=== PATIENT | male | born 1950 | race Caucasian/White ===

== ENCOUNTER 2017-11-05 22:53 | Emergency (ER) | payer MEDICARE, MEDICAID, OTHER ==
[~2017-11-05] VITALS: Ht 188 cm; Wt 70.5 kg
[~2017-11-05 22:53] MED LIST: BISA10SU60 RC; CYCL5TAB11 PO; DOCU-28 PO; GABA-338 PO; IPRA3AMP IH; LORA0.5T PO; MECL12.5 PO; PANT40TA39 PO; PRED10TA PO; RES15C PO; TRAZ-91 PO
[2017-11-05] MEDS ORDERED: dexamethasone 4mg tablet PO ONE (23:05)
[2017-11-05 23:26] LABS: BASOPHILS # (AUTO) 0.1 X10'3 (0-0.2); BASOPHILS % (AUTO) 1.2 % (0-1); EOSINOPHILS # (AUTO) 0.1 X10'3 (0-0.9); EOSINOPHILS % (AUTO) 2.1 % (0-6); HEMATOCRIT 37.9 % (42.0-52.0); HEMOGLOBIN 12.8 g/dl (14.0-17.9); LYMPHOCYTES # (AUTO) 0.7 X10'3 (1.1-4.8); LYMPHOCYTES % (AUTO) 14.9 % (21-51); MEAN CORPUSCULAR HEMOGLOBIN 36.6 PG (27.0-31.0); MEAN CORPUSCULAR HGB CONC 33.8 % (33.0-36.5); MEAN CORPUSCULAR VOLUME 108.1 FL (78-98); MEAN PLATELET VOLUME 6.4 FL (7.4-10.4); MONOCYTES # (AUTO) 0.5 X10'3 (0-0.9); MONOCYTES % (AUTO) 10.2 % (2-12); NEUTROPHILS # (AUTO) 3.5 X10'3 (1.8-7.7); NEUTROPHILS % (AUTO) 71.6 % (42-75); PLATELET COUNT 165 X10'3 (140-440); RED BLOOD COUNT 3.51 X10'6 (4.70-6.10); RED CELL DISTRIBUTION WIDTH 17.9 % (11.5-14.5); WHITE BLOOD COUNT 4.9 X10'3 (4.5-11.0)
[2017-11-05 23:49] LABS: ALANINE AMINOTRANSFERASE 30 U/L (12-78); ALBUMIN 3.6 G/DL (3.4-5.0); ALBUMIN/GLOBULIN RATIO 1.1 (1.1-1.5); ALKALINE PHOSPHATASE 51 IU/L (46-116); ANION GAP 12 (8-16); ASPARTATE AMINO TRANSFERASE 30 U/L (10-37); BILIRUBIN,TOTAL 1.3 MG/DL (0.1-1.0); BLOOD UREA NITROGEN 12 MG/DL (7-18); BUN/CREATININE RATIO 10.5 (5.4-32.0); CALCIUM 9.2 MG/DL (8.5-10.1); CHLORIDE 98 MMOL/L (99-107); CREATININE 1.14 MG/DL (0.60-1.10); GLUCOSE 114 MG/DL (70-104); MAGNESIUM 1.9 MG/DL (1.5-2.4); POTASSIUM 3.4 MMOL/L (3.5-5.1); SODIUM 135 MMOL/L (135-145); TOTAL CARBON DIOXIDE 25.1 MMOL/L (24-32); TOTAL PROTEIN 6.8 G/DL (6.4-8.2); eGFR 64 ML/MIN
[2017-11-06] MEDS ORDERED: dexamethasone 4mg tablet PO ONE (00:30)
[2017-11-06 01:01] VITALS: BP 101/61
== END 2017-11-06 01:00 | disposition home or self-care (01) ==
LOC: ER 22:53
DX: J44.1 Chronic obstructive pulmonary disease with (acute) exacerbation (principal); F17.210 Nicotine dependence, cigarettes, uncomplicated; I50.9 Heart failure, unspecified; G89.29 Other chronic pain; K21.9 Gastro-esophageal reflux disease without esophagitis; M19.90 Unspecified osteoarthritis, unspecified site; Z56.0 Unemployment, unspecified; Z79.899 Other long term (current) drug therapy
CPT/HCPCS: 36415; 71046; 80053; 83735; 83880; 84484; 85025; 93005; 99285; J8540

== ENCOUNTER 2019-06-17 19:15 | Emergency (ER) | payer MEDICAID, MEDICARE, OTHER ==
[~2019-06-17] VITALS: Ht 177.8 cm; Wt 75.0 kg
[~2019-06-17 19:15] MED LIST changes: -IPRA3AMP IH; +IPRA3AMP31 IH
[2019-06-17 19:26] VITALS: BP 117/62
[2019-06-17] MEDS ORDERED: TETanus/Pertussis (Acell)/Diphther VAC/PF (Tdap-Adult) 0.5ml syringe IMVAC ONE (20:20)
== END 2019-06-17 21:00 | disposition home or self-care (01) ==
LOC: ER 19:15
DX: S61.412A Laceration without foreign body of left hand, initial encounter (principal); J44.9 Chronic obstructive pulmonary disease, unspecified; K21.9 Gastro-esophageal reflux disease without esophagitis; M19.90 Unspecified osteoarthritis, unspecified site; G89.29 Other chronic pain; I50.9 Heart failure, unspecified; F17.200 Nicotine dependence, unspecified, uncomplicated; Z79.899 Other long term (current) drug therapy; Z56.0 Unemployment, unspecified; W18.39XA Other fall on same level, initial encounter; Y93.89 Activity, other specified; Y92.89 Other specified places as the place of occurrence of the external cause; Y99.8 Other external cause status
CPT/HCPCS: 90471; 90715; 99283

== ENCOUNTER 2019-08-31 09:25 | Emergency (ER) | payer MEDICARE, OTHER ==
[~2019-08-31] VITALS: Ht 177.8 cm; Wt 65.9 kg
[2019-08-31 10:01] LABS: BASOPHILS # (AUTO) 0.1 X10'3 (0-0.2); BASOPHILS % (AUTO) 1.4 % (0-1); EOSINOPHILS # (AUTO) 0.1 X10'3 (0-0.9); EOSINOPHILS % (AUTO) 2.4 % (0-6); HEMATOCRIT 36.5 % (42.0-52.0); HEMOGLOBIN 12.6 g/dl (14.0-17.9); LYMPHOCYTES # (AUTO) 0.8 X10'3 (1.1-4.8); LYMPHOCYTES % (AUTO) 17.2 % (21-51); MEAN CORPUSCULAR HEMOGLOBIN 33.7 PG (27.0-31.0); MEAN CORPUSCULAR HGB CONC 34.5 g/dL (33.0-36.5); MEAN CORPUSCULAR VOLUME 97.6 FL (78-98); MEAN PLATELET VOLUME 6.9 FL (7.4-10.4); MONOCYTES # (AUTO) 0.4 X10'3 (0-0.9); MONOCYTES % (AUTO) 8.1 % (2-12); NEUTROPHILS # (AUTO) 3.4 X10'3 (1.8-7.7); NEUTROPHILS % (AUTO) 70.9 % (42-75); PLATELET COUNT 236 X10'3 (140-440); RED BLOOD COUNT 3.74 X10'6 (4.70-6.10); RED CELL DISTRIBUTION WIDTH 15.1 % (11.5-14.5); WHITE BLOOD COUNT 4.7 X10'3 (4.5-11.0)
[2019-08-31 10:13] LABS: ALANINE AMINOTRANSFERASE 9 U/L (12-78); ALBUMIN 3.5 G/DL (3.4-5.0); ALBUMIN/GLOBULIN RATIO 1.2 (1.1-1.5); ALKALINE PHOSPHATASE 38 IU/L (46-116); ASPARTATE AMINO TRANSFERASE 19 U/L (10-37); BILIRUBIN,TOTAL 1.2 MG/DL (0.1-1.0); BLOOD UREA NITROGEN 12 MG/DL (7-18); BUN/CREATININE RATIO 12.5 (5.4-32.0); CALCIUM 8.9 MG/DL (8.5-10.1); CHLORIDE 101 MMOL/L (99-107); CREATININE 0.96 MG/DL (0.60-1.10); GLUCOSE 121 MG/DL (70-104); POTASSIUM 4.5 MMOL/L (3.5-5.1); TOTAL CARBON DIOXIDE 25.2 MMOL/L (24-32); TOTAL PROTEIN 6.5 G/DL (6.4-8.2); eGFR 78 ML/MIN
[2019-08-31 10:14] LABS: ANION GAP 5 (8-16); SODIUM 131 MMOL/L (135-145)
[2019-08-31] MEDS ORDERED: ipratropium/albuterol 3ml nebule NEB ONE (10:15)
[2019-08-31] MEDS ORDERED: methylPREDNISolone sod succ 125mg/2ml vial IV ONE (10:15)
[2019-08-31 10:50] LABS: D-DIMER 0.38 MG/L FEU (0-0.50)
[2019-08-31 11:54] VITALS: BP 118/67
[2019-08-31] MEDS ORDERED: LORazepam 1 MG tablet PO ONE (12:35)
== END 2019-08-31 13:00 | disposition home or self-care (01) ==
LOC: ER 09:26
DX: R06.03 Acute respiratory distress (principal); R19.7 Diarrhea, unspecified; I50.9 Heart failure, unspecified; J44.9 Chronic obstructive pulmonary disease, unspecified; K21.9 Gastro-esophageal reflux disease without esophagitis; M19.90 Unspecified osteoarthritis, unspecified site; G89.29 Other chronic pain; Z98.890 Other specified postprocedural states; Z56.0 Unemployment, unspecified; Z79.899 Other long term (current) drug therapy
CPT/HCPCS: 36415; 71045; 80053; 83880; 84484; 85025; 85379; 93005; 94640; 96374; 99285; J2930; 94760

== ENCOUNTER 2020-03-02 11:11 | Emergency (ER) | payer OTHER, MEDICARE ==
[~2020-03-02] VITALS: Ht 177.8 cm; Wt 74.0 kg
[~2020-03-02 11:11] MED LIST changes: +ALBU8.5H8 INH; -BISA10SU60 RC; +CEFD300C3 PO; -CYCL5TAB11 PO; -DOCU-28 PO; +DOXY-243 PO; -GABA-338 PO; -IPRA3AMP31 IH; +LACT1CAP26 PO; -LORA0.5T PO; -MECL12.5 PO; -PANT40TA39 PO; -PRED10TA PO; -RES15C PO; +TEMA15CA5 PO; +TRAZ-256 PO; -TRAZ-91 PO
--- NOTE | 2020-03-02 12:08 | NUR ---
Spoke with MD Manuel and informed of pts recent discharge from hospital yesterday and pt report of fever 101.5 last night.
[2020-03-02 12:32] VITALS: BP 119/52
== END 2020-03-02 12:29 | disposition home or self-care (01) ==
LOC: ER 11:12
DX: L03.115 Cellulitis of right lower limb (principal); I50.9 Heart failure, unspecified; J44.9 Chronic obstructive pulmonary disease, unspecified; K21.9 Gastro-esophageal reflux disease without esophagitis; M19.90 Unspecified osteoarthritis, unspecified site; G89.29 Other chronic pain; Z98.890 Other specified postprocedural states; Z72.89 Other problems related to lifestyle; Z59.0 Homelessness; Z56.0 Unemployment, unspecified; Z79.899 Other long term (current) drug therapy
CPT/HCPCS: 99283

== ENCOUNTER 2020-06-14 15:57 | Emergency (ER) | payer OTHER, MEDICARE ==
[~2020-06-14] VITALS: Ht 177.8 cm; Wt 72.7 kg
[~2020-06-14 15:57] MED LIST changes: -CEFD300C3 PO; -DOXY-243 PO
[2020-06-14] MEDS ORDERED: albuterol 2.5 MG/3 ML nebule NEB ONE (16:25)
[2020-06-14] MEDS ORDERED: methylPREDNISolone sod succ 125mg/2ml vial IV ONE (16:25)
[2020-06-14 16:45] LABS: BASOPHILS # (AUTO) 0.1 X10'3 (0-0.2); BASOPHILS % (AUTO) 0.7 % (0-1); EOSINOPHILS # (AUTO) 0.1 X10'3 (0-0.9); EOSINOPHILS % (AUTO) 0.7 % (0-6); HEMATOCRIT 39.2 % (42.0-52.0); HEMOGLOBIN 13.2 g/dl (14.0-17.9); LYMPHOCYTES # (AUTO) 0.7 X10'3 (1.1-4.8); LYMPHOCYTES % (AUTO) 4.9 % (21-51); MEAN CORPUSCULAR HGB CONC 33.6 g/dL (33.0-36.5); MEAN CORPUSCULAR VOLUME 98.2 FL (78-98); MEAN PLATELET VOLUME 7.4 FL (7.4-10.4); MONOCYTES # (AUTO) 0.8 X10'3 (0-0.9); MONOCYTES % (AUTO) 5.3 % (2-12); NEUTROPHILS # (AUTO) 12.9 X10'3 (1.8-7.7); NEUTROPHILS % (AUTO) 88.4 % (42-75); PLATELET COUNT 240 X10'3 (140-440); RED CELL DISTRIBUTION WIDTH 14.2 % (11.5-14.5); WHITE BLOOD COUNT 14.6 X10'3 (4.5-11.0)
[2020-06-14 16:52] LABS: ALANINE AMINOTRANSFERASE 21 U/L (12-78); ALBUMIN 3.5 G/DL (3.4-5.0); ALKALINE PHOSPHATASE 83 IU/L (46-116); ANION GAP 9 (8-16); ASPARTATE AMINO TRANSFERASE 28 U/L (10-37); BLOOD UREA NITROGEN 10 MG/DL (7-18); CHLORIDE 100 MMOL/L (99-107); CREATININE 0.83 MG/DL (0.60-1.10); GLUCOSE 101 MG/DL (70-104); POTASSIUM 4.6 MMOL/L (3.5-5.1); SODIUM 134 MMOL/L (135-145); TOTAL CARBON DIOXIDE 25.1 MMOL/L (24-32); TOTAL PROTEIN 7.1 G/DL (6.4-8.2); eGFR > 90 ML/MIN
[2020-06-14] MEDS ORDERED: DOXYCYCLINE 100MG CAPSULE PO STA (17:18)
[2020-06-14] MEDS ORDERED: DOXY100C2 PO (17:31)
[2020-06-14] MEDS ORDERED: PRED20TA PO (17:31)
[2020-06-14] MEDS ORDERED: [UNRECOGNIZED DRUG - CODE] (17:47)
[2020-06-14] MEDS ORDERED: IPRA3AMP31 IH (17:47)
[2020-06-14 17:48] VITALS: BP 104/53
== END 2020-06-14 17:53 | disposition home or self-care (01) ==
LOC: ER 15:58
DX: J44.1 Chronic obstructive pulmonary disease with (acute) exacerbation (principal); Z20.828 Contact with and (suspected) exposure to other viral communicable diseases; J44.9 Chronic obstructive pulmonary disease, unspecified; I50.9 Heart failure, unspecified; K21.9 Gastro-esophageal reflux disease without esophagitis; M19.90 Unspecified osteoarthritis, unspecified site; G89.29 Other chronic pain; F17.210 Nicotine dependence, cigarettes, uncomplicated; Z98.890 Other specified postprocedural states; Z56.0 Unemployment, unspecified; Z59.0 Homelessness; Z79.2 Long term (current) use of antibiotics; Z79.899 Other long term (current) drug therapy
CPT/HCPCS: 36415; 71045; 80053; 83880; 84145; 84484; 85025; 87635; 93005; 94640; 96374; 99285; J2930; 94760

== ENCOUNTER 2020-06-24 08:25 | Emergency (ER) | payer OTHER, MEDICARE ==
[~2020-06-24] VITALS: Ht 177.8 cm; Wt 70.5 kg
[~2020-06-24 08:25] MED LIST changes: +IPRA3AMP31 IH; +PRED20TA PO; +[UNRECOGNIZED DRUG - CODE]
[2020-06-24] MEDS ORDERED: ipratropium/albuterol 3ml nebule NEB ONE (08:50)
[2020-06-24] MEDS ORDERED: LORazepam 2 mg/ml vial IV ONE (08:55)
[2020-06-24] MEDS ORDERED: iohexol 350MG/ML 100ml bottle IV ONE (09:06)
[2020-06-24 09:32] LABS: BASOPHILS # (AUTO) 0.1 X10'3 (0-0.2); BASOPHILS % (AUTO) 0.6 % (0-1); EOSINOPHILS % (AUTO) 0.3 % (0-6); HEMATOCRIT 35.8 % (42.0-52.0); LYMPHOCYTES % (AUTO) 7.7 % (21-51); MEAN CORPUSCULAR HEMOGLOBIN 32.6 PG (27.0-31.0); MEAN CORPUSCULAR HGB CONC 33.6 g/dL (33.0-36.5); MEAN CORPUSCULAR VOLUME 97.1 FL (78-98); MEAN PLATELET VOLUME 6.5 FL (7.4-10.4); MONOCYTES % (AUTO) 7.7 % (2-12); NEUTROPHILS # (AUTO) 10.6 X10'3 (1.8-7.7); NEUTROPHILS % (AUTO) 83.7 % (42-75); PLATELET COUNT 290 X10'3 (140-440); RED BLOOD COUNT 3.69 X10'6 (4.70-6.10); WHITE BLOOD COUNT 12.6 X10'3 (4.5-11.0)
[2020-06-24 09:46] LABS: ALANINE AMINOTRANSFERASE 33 U/L (12-78); ALBUMIN 3.1 G/DL (3.4-5.0); ALBUMIN/GLOBULIN RATIO 0.8 (1.1-1.5); ALKALINE PHOSPHATASE 56 IU/L (46-116); ANION GAP 10 (8-16); ASPARTATE AMINO TRANSFERASE 56 U/L (10-37); BILIRUBIN,TOTAL 0.9 MG/DL (0.1-1.0); BLOOD UREA NITROGEN 10 MG/DL (7-18); BUN/CREATININE RATIO 14.1 (5.4-32.0); CALCIUM 8.7 MG/DL (8.5-10.1); CHLORIDE 103 MMOL/L (99-107); CREATININE 0.71 MG/DL (0.60-1.10); GLUCOSE 90 MG/DL (70-104); POTASSIUM 4.2 MMOL/L (3.5-5.1); SODIUM 136 MMOL/L (135-145); TOTAL CARBON DIOXIDE 22.8 MMOL/L (24-32); TOTAL PROTEIN 6.8 G/DL (6.4-8.2); eGFR > 90 ML/MIN
[2020-06-24 09:53] LABS: TROPONIN I < 0.04 NG/ML (0.0-0.05)
[2020-06-24 11:24] VITALS: BP 118/58
[2020-06-24] MEDS ORDERED: ALBU8.5H8 INH (11:30)
[2020-06-24] MEDS ORDERED: PRED20TA PO (11:30)
[2020-06-24] MEDS ORDERED: SULF1TAB49 PO (11:51)
== END 2020-06-24 12:41 | disposition home or self-care (01) ==
LOC: ER 08:26
DX: S22.41XA Multiple fractures of ribs, right side, initial encounter for closed fracture (principal); Z20.828 Contact with and (suspected) exposure to other viral communicable diseases; S40.211A Abrasion of right shoulder, initial encounter; J44.1 Chronic obstructive pulmonary disease with (acute) exacerbation; L03.113 Cellulitis of right upper limb; I25.10 Atherosclerotic heart disease of native coronary artery without angina pectoris; K21.9 Gastro-esophageal reflux disease without esophagitis; G89.29 Other chronic pain; M19.90 Unspecified osteoarthritis, unspecified site; Z56.0 Unemployment, unspecified; Z59.0 Homelessness; Z98.890 Other specified postprocedural states; Z79.899 Other long term (current) drug therapy; Z72.89 Other problems related to lifestyle; W19.XXXA Unspecified fall, initial encounter; Z91.81 History of falling; Y93.89 Activity, other specified; Y92.89 Other specified places as the place of occurrence of the external cause; Y99.8 Other external cause status
CPT/HCPCS: 36415; 71275; 74177; 80053; 83880; 84484; 85025; 87635; 93005; 94640; 96374; 99285; C9803; J2060; Q9967; 94760

== ENCOUNTER 2020-06-24 19:29 | Emergency (ER) | payer OTHER, MEDICARE ==
[~2020-06-24] VITALS: Ht 177.8 cm; Wt 72.7 kg
[~2020-06-24 19:29] MED LIST changes: +SULF1TAB49 PO
[2020-06-24] MEDS ORDERED: loperamide 2mg capsule PO ONE (19:45)
[2020-06-24 20:02] VITALS: BP 110/57
== END 2020-06-24 20:04 | disposition home or self-care (01) ==
LOC: ER 19:29
DX: R19.7 Diarrhea, unspecified (principal); I50.9 Heart failure, unspecified; J44.9 Chronic obstructive pulmonary disease, unspecified; K21.9 Gastro-esophageal reflux disease without esophagitis; M19.90 Unspecified osteoarthritis, unspecified site; G89.29 Other chronic pain; F17.200 Nicotine dependence, unspecified, uncomplicated; Z56.0 Unemployment, unspecified; Z59.0 Homelessness; Z72.89 Other problems related to lifestyle; Z98.890 Other specified postprocedural states; Z79.899 Other long term (current) drug therapy
CPT/HCPCS: 99283

== ENCOUNTER 2020-07-14 17:59 | Emergency (ER) | payer OTHER, MEDICARE ==
[~2020-07-14] VITALS: Ht 177.8 cm; Wt 72.7 kg
[~2020-07-14 17:59] MED LIST changes: +BACDS PO; +BUDE10.22 INH; +FOLI0.4T2 PO; -IPRA3AMP31 IH; +MULT-25 PO; +PRED10TA23 PO; -PRED20TA PO; -SULF1TAB49 PO; -TEMA15CA5 PO; +THIA50TA10 PO; +TIOT4MIS3 INH; -[UNRECOGNIZED DRUG - CODE]
[2020-07-14] MEDS ORDERED: ipratropium/albuterol 3ml nebule NEB ONE (19:40)
[2020-07-14] MEDS ORDERED: LORazepam 1 MG tablet PO ONE (19:40)
[2020-07-14 20:29] VITALS: BP 109/59
--- NOTE | 2020-07-14 20:35 | NUR ---
CAB CALLED FOR PT. WAIT FOR CAB APPROX 1 HOUR. PT GIVEN SANDWICH WHILE WAITING.
== END 2020-07-14 21:28 | disposition home or self-care (01) ==
LOC: ER 18:00
DX: R06.02 Shortness of breath (principal); I50.9 Heart failure, unspecified; J44.9 Chronic obstructive pulmonary disease, unspecified; K21.9 Gastro-esophageal reflux disease without esophagitis; M19.90 Unspecified osteoarthritis, unspecified site; G89.29 Other chronic pain; F17.200 Nicotine dependence, unspecified, uncomplicated; Z98.890 Other specified postprocedural states; Z72.89 Other problems related to lifestyle; Z59.0 Homelessness; Z56.0 Unemployment, unspecified; Z79.2 Long term (current) use of antibiotics; Z79.899 Other long term (current) drug therapy
CPT/HCPCS: 94640; 94760; 99284

== ENCOUNTER 2020-08-06 14:18 | Emergency (ER) | payer OTHER, MEDICARE ==
[~2020-08-06] VITALS: Ht 177.8 cm; Wt 68.2 kg
[2020-08-06 15:01] LABS: BASOPHILS # (AUTO) 0.1 X10'3 (0-0.2); BASOPHILS % (AUTO) 1.1 % (0-1); EOSINOPHILS # (AUTO) 0.1 X10'3 (0-0.9); EOSINOPHILS % (AUTO) 0.9 % (0-6); HEMATOCRIT 34.6 % (42.0-52.0); HEMOGLOBIN 11.7 g/dl (14.0-17.9); LYMPHOCYTES # (AUTO) 0.9 X10'3 (1.1-4.8); LYMPHOCYTES % (AUTO) 14.4 % (21-51); MEAN CORPUSCULAR HEMOGLOBIN 35.6 PG (27.0-31.0); MEAN CORPUSCULAR HGB CONC 33.8 g/dL (33.0-36.5); MEAN CORPUSCULAR VOLUME 105.4 FL (78-98); MEAN PLATELET VOLUME 6.4 FL (7.4-10.4); MONOCYTES # (AUTO) 0.6 X10'3 (0-0.9); MONOCYTES % (AUTO) 9.8 % (2-12); NEUTROPHILS # (AUTO) 4.4 X10'3 (1.8-7.7); NEUTROPHILS % (AUTO) 73.8 % (42-75); PLATELET COUNT 310 X10'3 (140-440); RED BLOOD COUNT 3.28 X10'6 (4.70-6.10); RED CELL DISTRIBUTION WIDTH 17.2 % (11.5-14.5); WHITE BLOOD COUNT 5.9 X10'3 (4.5-11.0)
[2020-08-06 15:14] LABS: ALANINE AMINOTRANSFERASE 15 U/L (12-78); ALBUMIN 3.2 G/DL (3.4-5.0); ALBUMIN/GLOBULIN RATIO 0.9 (1.1-1.5); ALKALINE PHOSPHATASE 44 IU/L (46-116); ANION GAP 9 (8-16); ASPARTATE AMINO TRANSFERASE 25 U/L (10-37); BILIRUBIN,TOTAL 0.8 MG/DL (0.1-1.0); BLOOD UREA NITROGEN 8 MG/DL (7-18); BUN/CREATININE RATIO 9.2 (5.4-32.0); CALCIUM 8.5 MG/DL (8.5-10.1); CHLORIDE 99 MMOL/L (99-107); CREATININE 0.87 MG/DL (0.60-1.10); ETHANOL 0.168 GM/DL (0.0-0.010); GLUCOSE 97 MG/DL (70-104); POTASSIUM 4.2 MMOL/L (3.5-5.1); SODIUM 134 MMOL/L (135-145); TOTAL CARBON DIOXIDE 25.9 MMOL/L (24-32); TOTAL PROTEIN 6.7 G/DL (6.4-8.2); eGFR 87 ML/MIN
[2020-08-06] MEDS ORDERED: iohexol 300mg/ml 100ml inj. ONE (15:29)
[2020-08-06 16:51] VITALS: BP 111/63
[2020-08-06] MEDS ORDERED: ibuprofen tablet 400 MG TABLET PO ONE (18:05)
== END 2020-08-06 18:23 | disposition home or self-care (01) ==
LOC: ER 14:18
DX: S22.32XA Fracture of one rib, left side, initial encounter for closed fracture (principal); M25.512 Pain in left shoulder; F10.129 Alcohol abuse with intoxication, unspecified; I50.9 Heart failure, unspecified; J44.9 Chronic obstructive pulmonary disease, unspecified; K21.9 Gastro-esophageal reflux disease without esophagitis; M19.90 Unspecified osteoarthritis, unspecified site; G89.29 Other chronic pain; Z72.89 Other problems related to lifestyle; Z98.890 Other specified postprocedural states; Z56.0 Unemployment, unspecified; Z59.0 Homelessness; Z79.2 Long term (current) use of antibiotics; Z79.899 Other long term (current) drug therapy; W18.30XA Fall on same level, unspecified, initial encounter; Y93.89 Activity, other specified; Y92.89 Other specified places as the place of occurrence of the external cause; Y99.8 Other external cause status; Y90.0 Blood alcohol level of less than 20 mg/100 ml
CPT/HCPCS: 36415; 70450; 71260; 72125; 73030; 74177; 80053; 80320; 85025; 85610; 99285; Q9967

== ENCOUNTER 2020-09-08 10:18 | Emergency (ER) | payer OTHER, MEDICARE ==
[~2020-09-08] VITALS: Ht 177.8 cm; Wt 70.0 kg
[~2020-09-08 10:18] MED LIST changes: -BACDS PO; -FOLI0.4T2 PO; -LACT1CAP26 PO; +LEVO750T46 PO; -MULT-25 PO; +NICO-631 TD; -PRED10TA23 PO; -THIA50TA10 PO; -TRAZ-256 PO
[2020-09-08 10:21] VITALS: BP 99/63
== END 2020-09-08 11:48 | disposition home or self-care (01) ==
LOC: ER 10:18
DX: S43.402A Unspecified sprain of left shoulder joint, initial encounter (principal); X58.XXXA Exposure to other specified factors, initial encounter; Y93.89 Activity, other specified; Y92.89 Other specified places as the place of occurrence of the external cause; Y99.8 Other external cause status; Z79.899 Other long term (current) drug therapy
CPT/HCPCS: 73030; 99284

== ENCOUNTER 2020-09-10 11:36 | Emergency (ER) | payer OTHER, MEDICARE ==
[~2020-09-10] VITALS: Ht 177.8 cm; Wt 72.7 kg
[2020-09-10 11:43] VITALS: BP 107/63
[2020-09-10] MEDS ORDERED: ketorolac tromethamine 15mg/ml inj. IM ONE (13:30)
== END 2020-09-10 13:48 | disposition home or self-care (01) ==
LOC: ER 11:36
DX: M25.512 Pain in left shoulder (principal); I50.9 Heart failure, unspecified; J44.9 Chronic obstructive pulmonary disease, unspecified; K21.9 Gastro-esophageal reflux disease without esophagitis; M19.90 Unspecified osteoarthritis, unspecified site; G89.29 Other chronic pain; Z98.890 Other specified postprocedural states; Z72.89 Other problems related to lifestyle; Z59.0 Homelessness; Z56.0 Unemployment, unspecified; Z79.899 Other long term (current) drug therapy; Z79.2 Long term (current) use of antibiotics
CPT/HCPCS: 73030; 96372; 99283; J1885

== ENCOUNTER 2021-06-07 09:11 | Emergency (ER) | payer OTHER, MEDICARE ==
[~2021-06-07] VITALS: Ht 177.8 cm; Wt 79.5 kg
[~2021-06-07 09:11] MED LIST changes: +ALBU8.5H17 INH; -ALBU8.5H8 INH; -LEVO750T46 PO
[2021-06-07 09:22] VITALS: BP 139/61
[2021-06-07 09:56] LABS: BASOPHILS # (AUTO) 0.1 X10'3 (0-0.2); BASOPHILS % (AUTO) 0.8 % (0-1); EOSINOPHILS # (AUTO) 0.5 X10'3 (0-0.9); EOSINOPHILS % (AUTO) 5.7 % (0-6); HEMATOCRIT 40.5 % (42.0-52.0); HEMOGLOBIN 13.6 g/dl (14.0-17.9); LYMPHOCYTES # (AUTO) 0.8 X10'3 (1.1-4.8); MEAN CORPUSCULAR HEMOGLOBIN 31.7 PG (27.0-31.0); MEAN CORPUSCULAR HGB CONC 33.6 g/dL (33.0-36.5); MEAN CORPUSCULAR VOLUME 94.3 FL (78-98); MEAN PLATELET VOLUME 7.6 FL (7.4-10.4); MONOCYTES % (AUTO) 12.1 % (2-12); NEUTROPHILS # (AUTO) 5.7 X10'3 (1.8-7.7); NEUTROPHILS % (AUTO) 71.4 % (42-75); PLATELET COUNT 256 X10'3 (140-440); RED CELL DISTRIBUTION WIDTH 13.8 % (11.5-14.5); WHITE BLOOD COUNT 8.1 X10'3 (4.5-11.0)
[2021-06-07 10:09] LABS: ALANINE AMINOTRANSFERASE 29 U/L (12-78); ALBUMIN 3.4 G/DL (3.4-5.0); ALBUMIN/GLOBULIN RATIO 0.8 (1.1-1.5); ALKALINE PHOSPHATASE 53 IU/L (46-116); ANION GAP 7 (8-16); ASPARTATE AMINO TRANSFERASE 18 U/L (10-37); BILIRUBIN,TOTAL 0.4 MG/DL (0.1-1.0); BLOOD UREA NITROGEN 11 MG/DL (7-18); BUN/CREATININE RATIO 10.1 (5.4-32.0); CALCIUM 8.9 MG/DL (8.5-10.1); CHLORIDE 103 MMOL/L (99-107); CREATININE 1.09 MG/DL (0.60-1.10); GLUCOSE 117 MG/DL (70-104); POTASSIUM 4.5 MMOL/L (3.5-5.1); SODIUM 139 MMOL/L (135-145); TOTAL CARBON DIOXIDE 29.2 MMOL/L (24-32); TOTAL PROTEIN 7.5 G/DL (6.4-8.2); eGFR 67 ML/MIN
[2021-06-07] MEDS ORDERED: AMOX-117 PO (11:04)
== END 2021-06-07 11:23 | disposition home or self-care (01) ==
LOC: ER 09:12
DX: J20.9 Acute bronchitis, unspecified (principal); Z20.822 Contact with and (suspected) exposure to COVID-19; R91.1 Solitary pulmonary nodule; J44.9 Chronic obstructive pulmonary disease, unspecified; K21.9 Gastro-esophageal reflux disease without esophagitis; I50.9 Heart failure, unspecified; M19.90 Unspecified osteoarthritis, unspecified site; Z72.89 Other problems related to lifestyle; Z56.0 Unemployment, unspecified; Z59.00 Homelessness unspecified; Z79.899 Other long term (current) drug therapy
CPT/HCPCS: 36415; 71045; 80053; 85025; 87502; 87503; 87635; 99284; C9803

== ENCOUNTER 2021-10-29 12:55 | Emergency (ER) | payer OTHER, MEDICARE ==
[~2021-10-29] VITALS: Ht 177.8 cm; Wt 85.0 kg
[2021-10-29] MEDS ORDERED: albuterol 2.5 MG/3 ML nebule CONTNEB PRN (13:05)
[2021-10-29] MEDS ORDERED: magnesium 2GM in 50ml NS 50 ML IV ONE (13:05)
[2021-10-29] MEDS ORDERED: normal saline 1000ML IV soln IVB ONE (13:05)
[2021-10-29] MEDS ORDERED: methylPREDNISolone sod succ 125mg/2ml vial IV ONE (13:05)
[2021-10-29 13:46] LABS: BASOPHILS # (AUTO) 0.1 X10'3 (0-0.2); BASOPHILS % (AUTO) 1.2 % (0-1); EOSINOPHILS # (AUTO) 0.3 X10'3 (0-0.9); EOSINOPHILS % (AUTO) 5.8 % (0-6); HEMATOCRIT 41.7 % (42.0-52.0); LYMPHOCYTES # (AUTO) 1.5 X10'3 (1.1-4.8); LYMPHOCYTES % (AUTO) 26.6 % (21-51); MEAN CORPUSCULAR HEMOGLOBIN 33.2 PG (27.0-31.0); MEAN CORPUSCULAR HGB CONC 33.5 g/dL (33.0-36.5); MEAN CORPUSCULAR VOLUME 99.2 FL (78-98); MEAN PLATELET VOLUME 6.6 FL (7.4-10.4); MONOCYTES # (AUTO) 0.5 X10'3 (0-0.9); MONOCYTES % (AUTO) 9.5 % (2-12); NEUTROPHILS # (AUTO) 3.3 X10'3 (1.8-7.7); NEUTROPHILS % (AUTO) 56.9 % (42-75); PLATELET COUNT 271 X10'3 (140-440); RED CELL DISTRIBUTION WIDTH 16.4 % (11.5-14.5); WHITE BLOOD COUNT 5.7 X10'3 (4.5-11.0)
[2021-10-29 13:53] LABS: D-DIMER 0.42 MG/L FEU (0-0.50)
[2021-10-29 13:59] LABS: ALANINE AMINOTRANSFERASE 15 U/L (12-78); ALBUMIN 3.4 G/DL (3.4-5.0); ALBUMIN/GLOBULIN RATIO 1.1 (1.1-1.5); ALKALINE PHOSPHATASE 54 IU/L (46-116); ANION GAP 6 (8-16); ASPARTATE AMINO TRANSFERASE 17 U/L (10-37); BILIRUBIN,TOTAL 0.5 MG/DL (0.1-1.0); BLOOD UREA NITROGEN 7 MG/DL (7-18); BUN/CREATININE RATIO 5.9 (5.4-32.0); CALCIUM 8.1 MG/DL (8.5-10.1); CHLORIDE 101 MMOL/L (99-107); CREATININE 1.18 MG/DL (0.60-1.10); GLUCOSE 106 MG/DL (70-104); POTASSIUM 4.5 MMOL/L (3.5-5.1); SODIUM 133 MMOL/L (135-145); TOTAL CARBON DIOXIDE 26.2 MMOL/L (24-32); TOTAL PROTEIN 6.6 G/DL (6.4-8.2); eGFR 61 ML/MIN
[2021-10-29] MEDS ORDERED: PRED20TA PO (14:26)
[2021-10-29 15:01] VITALS: BP 111/67
== END 2021-10-29 15:35 | disposition home or self-care (01) ==
LOC: ER 12:56
DX: J44.1 Chronic obstructive pulmonary disease with (acute) exacerbation (principal); I50.9 Heart failure, unspecified; J44.9 Chronic obstructive pulmonary disease, unspecified; K21.9 Gastro-esophageal reflux disease without esophagitis; M19.90 Unspecified osteoarthritis, unspecified site; G89.29 Other chronic pain; F17.200 Nicotine dependence, unspecified, uncomplicated; Z72.89 Other problems related to lifestyle; Z56.0 Unemployment, unspecified; Z59.00 Homelessness unspecified; Z98.890 Other specified postprocedural states; Z79.899 Other long term (current) drug therapy
CPT/HCPCS: 36415; 71045; 80053; 84484; 85025; 85379; 93005; 94644; 96365; 96375; 99285; J2930; J3475; J7030; 94640; 94760; A7015

== ENCOUNTER 2021-12-09 22:12 | Emergency (ER) | payer OTHER, MEDICARE ==
[~2021-12-09] VITALS: Ht 177.8 cm; Wt 79.4 kg
[2021-12-09 22:42] LABS: BASOPHILS # (AUTO) 0.1 X10'3 (0-0.2); BASOPHILS % (AUTO) 1.4 % (0-1); EOSINOPHILS # (AUTO) 0.2 X10'3 (0-0.9); HEMATOCRIT 40.2 % (42.0-52.0); HEMOGLOBIN 13.7 g/dl (14.0-17.9); LYMPHOCYTES # (AUTO) 1.4 X10'3 (1.1-4.8); LYMPHOCYTES % (AUTO) 29.6 % (21-51); MEAN CORPUSCULAR HEMOGLOBIN 34.3 PG (27.0-31.0); MEAN PLATELET VOLUME 6.8 FL (7.4-10.4); MONOCYTES # (AUTO) 0.5 X10'3 (0-0.9); MONOCYTES % (AUTO) 11.1 % (2-12); NEUTROPHILS # (AUTO) 2.6 X10'3 (1.8-7.7); NEUTROPHILS % (AUTO) 53.9 % (42-75); PLATELET COUNT 150 X10'3 (140-440); RED BLOOD COUNT 3.98 X10'6 (4.70-6.10); RED CELL DISTRIBUTION WIDTH 15.7 % (11.5-14.5); WHITE BLOOD COUNT 4.9 X10'3 (4.5-11.0)
[2021-12-09 22:54] LABS: ALANINE AMINOTRANSFERASE 22 U/L (12-78); ALBUMIN 3.5 G/DL (3.4-5.0); ALBUMIN/GLOBULIN RATIO 1.1 (1.1-1.5); ALKALINE PHOSPHATASE 44 IU/L (46-116); ANION GAP 8 (8-16); ASPARTATE AMINO TRANSFERASE 60 U/L (10-37); BILIRUBIN,TOTAL 0.7 MG/DL (0.1-1.0); BLOOD UREA NITROGEN 6 MG/DL (7-18); CALCIUM 8.1 MG/DL (8.5-10.1); CHLORIDE 94 MMOL/L (99-107); CREATININE 0.86 MG/DL (0.60-1.10); GLUCOSE 82 MG/DL (70-104); POTASSIUM 4.4 MMOL/L (3.5-5.1); SODIUM 126 MMOL/L (135-145); TOTAL CARBON DIOXIDE 23.9 MMOL/L (24-32); TOTAL PROTEIN 6.7 G/DL (6.4-8.2); eGFR 88 ML/MIN
[2021-12-09 22:57] LABS: MAGNESIUM 2.2 MG/DL (1.5-2.4)
[2021-12-09 22:59] LABS: ETHANOL 0.315 GM/DL (0.0-0.010)
[2021-12-09] MEDS ORDERED: normal saline 1000ml 1,000 ML IV ONE (23:10)
[2021-12-09] MEDS ORDERED: sodium chloride 1gm tablet PO ONE (23:10)
--- NOTE | 2021-12-10 00:25 | NUR ---
pt's sats dropping to 87-88% while pt is sleeping, pt placed on oxygen at 2 lpm via n/c. pt states he has hx of sleep apnea
[2021-12-10] MEDS ORDERED: ipratropium/albuterol 3ml nebule NEB ONE (04:15)
--- NOTE | 2021-12-10 06:45 | NUR ---
PT IS ALERT AND ORIENTED. GIVEN SNACK
[2021-12-10 07:07] VITALS: BP 100/56
== END 2021-12-10 07:15 | disposition home or self-care (01) ==
LOC: ER 22:13
DX: F10.129 Alcohol abuse with intoxication, unspecified (principal); R32 Unspecified urinary incontinence; J44.9 Chronic obstructive pulmonary disease, unspecified; M19.90 Unspecified osteoarthritis, unspecified site; G89.29 Other chronic pain; I50.9 Heart failure, unspecified; Z98.890 Other specified postprocedural states; Z72.89 Other problems related to lifestyle; Z56.0 Unemployment, unspecified; Z59.00 Homelessness unspecified; Z79.899 Other long term (current) drug therapy; W18.30XA Fall on same level, unspecified, initial encounter; Y93.89 Activity, other specified; Y92.89 Other specified places as the place of occurrence of the external cause; Y99.8 Other external cause status; Y90.0 Blood alcohol level of less than 20 mg/100 ml
CPT/HCPCS: 36415; 70450; 72125; 80053; 80320; 83735; 84484; 85025; 94640; 99285; J7030; 94760

== ENCOUNTER 2024-12-23 01:44 | Emergency (ER) | payer MEDICARE, OTHER ==
[~2024-12-23] VITALS: Ht 177.8 cm; Wt 80.0 kg
--- NOTE | 2024-12-23 02:05 | RADIOLOGY REPORT ---
CHEST RADIOGRAPH Indication: CP Technique: Single frontal view of the chest was obtained COMPARISON: CHEST,SINGLE VIEW on DOS: 10/29/21 FINDINGS: Lines and Tubes: None Lungs: Clear. Moderate right basilar atelectasis. Pleura: No effusion. No pneumothorax. Cardiomediastinal contours: Unremarkable Bones: Unremarkable. Old healed right rib fractures noted. IMPRESSION: 1. No acute disease.
[2024-12-23] MEDS: LORazepam 2 mg/ml vial IV ONE (02:09)
[2024-12-23 02:24] LABS: BASOPHILS % (AUTO) 0.2 % (0-1); EOSINOPHILS # (AUTO) 0.1 X10'3 (0-0.9); EOSINOPHILS % (AUTO) 1.6 % (0-6); HEMATOCRIT 36.6 % (42.0-52.0); HEMOGLOBIN 12.5 g/dl (14.0-17.9); LYMPHOCYTES % (AUTO) 10.9 % (21-51); MEAN CORPUSCULAR HEMOGLOBIN 33.4 PG (27.0-31.0); MEAN CORPUSCULAR VOLUME 98.3 FL (78-98); MEAN PLATELET VOLUME 6.9 FL (7.4-10.4); MONOCYTES # (AUTO) 0.8 X10'3 (0-0.9); MONOCYTES % (AUTO) 9.1 % (2-12); NEUTROPHILS # (AUTO) 7.3 X10'3 (1.8-7.7); NEUTROPHILS % (AUTO) 78.2 % (42-75); PLATELET COUNT 281 X10'3 (140-440); RED BLOOD COUNT 3.73 X10'6 (4.70-6.10); RED CELL DISTRIBUTION WIDTH 15.9 % (11.5-14.5); WHITE BLOOD COUNT 9.3 X10'3 (4.5-11.0)
[2024-12-23] MEDS: methylPREDNISolone sod succ 125mg/2ml vial IV ONE (02:29)
[2024-12-23] MEDS: magnesium sulf-water 2g/50mL 50 ML IV ONE (02:37)
[2024-12-23 02:40] LABS: D-DIMER 0.48 MG/L FEU (0-0.50)
[2024-12-23 02:50] LABS: ALBUMIN 3.3 G/DL (3.4-5.0); ANION GAP 5 (8-16); BLOOD UREA NITROGEN 24 MG/DL (7-18); BUN/CREATININE RATIO 20.7 (10.0-20.0); CALCIUM 8.2 MG/DL (8.5-10.1); CHLORIDE 108 MMOL/L (99-107); CREATININE 1.16 MG/DL (0.60-1.10); GLUCOSE 103 MG/DL (70-104); POTASSIUM 4.3 MMOL/L (3.5-5.1); PRO BRAIN NATRIURETIC PEPTIDE 260 PG/ML (0-125); SODIUM 143 MMOL/L (135-145); TOTAL CARBON DIOXIDE 29.7 MMOL/L (24-32); eCRCL 58 ML/MIN; eGFR 62 ML/MIN
[2024-12-23] MEDS: albuterol 2.5 MG/3 ML nebule CONTNEB PRN (03:48)
--- NOTE | 2024-12-23 04:32 | Physician Documentation ---
History of Present Illness ~ Chief Complaint: Respiratory Distress Stated Complaint: SOB Time Seen by MD: 01:58 Primary Medical Doctor: alice Mode of Arrival: EMS HPI This is a 74-year-old gentleman with a known history of COPD, who is supposed to be on oxygen at baseline, comes in for evaluation of sudden shortness a breath that began shortly prior to arrival including expiratory wheezes. No obvious trigger provocation. Similar to prior COPD exacerbation, not accompanied by chest pain. He feels extremely anxious and short of breath. Did not attempt to treat his symptoms. Never had to be intubated for his COPD. Never required BiPAP. Did denies any fever or chills. Denies chest pain. Denies any other symptoms. Medication Reconciliation Allergies: Coded Allergies: No Known Allergies (Unverified , 10/29/21) Scheduled Budesonide/Formoterol Fumarate (Symbicort 80-4.5 Mcg Inhaler), 2 PUFFS INH Q12H Nicotine 14 MG Patch* (Habitrol 14 MG Patch*), 1 PATCH TD DAILY Tiotropium Br/Olodaterol HCl (Stiolto Respimat Inhal [place]), 1 PUFF INH QAM, (Reported) Scheduled PRN Albuterol Sulfate (Proair Hfa), 2 PUFFS INH Q4HPRN PRN for wheezing Past Medical History Past Medical History: Congestive Heart Failure, COPD, GERD, Hernia, Arthritis, Chronic Back Pain Past Surgical History: other Other Past Surgical History: left inguinal hernia sx Alcohol Use: Heavy Drug Use: none Lives In: Homeless Occupation: unemployed Review of Systems ROS 10 point review of systems was performed and unless noted above in HPI is negati ve for acute process/complaint. Physical Exam Vital Signs: Temperature: 97.9, Source: Temporal, Heart Rate: 79, Respiratory Rate: 30, BP: 121/68, Pulse Oximetry: 100, Weight: 80.000 Oxygen Flow Rate: 6.0 Physical Exam GENERAL: Awake, alert, oriented, GCS 15, no apparent distress, non-toxic appearing, answers questions, follows commands appropriately. Examined shortly after arrival in bed 2. HEENT: Atraumatic, normocephalic, pupils equal, extraocular muscles intact, sclerae anicteric, mucus membranes moist, oropharynx is clear, no stridor. NECK: supple, full active range of motion, trachea midline, no thyromegaly, no lymphadenopathy, no JVD. CARDIOVASCULAR: regular rate/rhythm, no murmurs/gallops/rubs, Pulses are 2+ in all extremities and symmetric. Capillary refill less than 2 seconds. PULMONARY: Tachypneic and labored, decreased air movement ,no respiratory distress, speaking in full sentences, bilateral wheezing, no ronchi, no rales, no accessory muscle use. GASTROINTESTINAL: Soft, non-tender, non-distended, normal active bowel sounds, no organomegaly, no pulsatile masses, no CVA tenderness. NEUROLOGIC: Lucid with normal mental status. Normal facial symmetry. Moves all extremities symmetrically and with purpose. No truncal ataxia. Speech is fluid without evidence of dysarthria or aphasia, no focal deficits appreciated. MUSCULOSKELETAL: There is full range of motion of all extremities. There is no joint pain or joint swelling or joint erythema. There is no muscle pain or tenderness or swelling. EXTREMITIES: warm, well-perfused, no cyanosis, no clubbing, no edema, no acute deformities. Skin: warm, dry, no rashes or lesions, no jaundice, no petechiae orpurpura. No ecchymosis. PSYCHIATRIC: Normal affect, normal insight, normal concentration. Focused exam: [] Progress Results/Orders Results/Orders Orders - SORAYA TAMAYO DO Chest,Single View (12/23/24 01:45) Monitor (12/23/24 01:45) Saline Lock (12/23/24 01:45) Oxygen (12/23/24 01:45) Electrocardiogram (12/23/24 01:45) Hs Troponin I W Calculations (12/23/24 03:45) Hs Troponin I W Calculations (12/23/24 04:45) Albuterol 2.5mg/3ml Nebule (Proventil 2. (12/23/24 02:15) * Rt Notification Q1H (12/23/24 02:11) Completed Orders - SORAYA TAMAYO DO Chest,Single View (12/23/24 01:45) Cbc/Diff (12/23/24 01:45) BMP (12/23/24 01:45) PBNP (12/23/24 01:45) Hs Troponin I W Calculations (12/23/24 01:45) Lorazepam Inj (Ativan Inj) (12/23/24 02:05) Methylprednisolone Sod Succ (Solumedrol (12/23/24 02:15) Magnesium Sulf-Water 2g/50ml (Magnesium (12/23/24 02:15) D-Dimer (12/23/24 02:11) Medications Received in ER Medications (Trade) Dose Ordered Sig/Nerissa Route PRN Reason Start Time Stop Time Status Last Admin Dose Admin (Ativan inj) 1 mg ONCE ONCE IV 12/23/24 02:05 12/23/24 02:06 DC 12/23/24 02:09 1 MG (SoluMEDROL 125mg inj) 125 mg ONCE ONCE IV 12/23/24 02:15 12/23/24 02:16 DC 12/23/24 02:29 125 MG Magnesium Sulfate 50 ml @ 100 mls/hr ONCE ONCE IV 12/23/24 02:15 12/23/24 02:44 DC 12/23/24 02:37 100 MLS/HR Vital Signs 12/23/24 12/23/24 12/23/24 01:46 02:20 02:21 Temp 97.9 Pulse 90 79 Resp 22 18 30 B/P (MAP) 114/59 121/68 (85) Pulse Ox 99 100 O2 Flow Rate 6.0 Laboratory Tests Test 12/23/24 01:57 White Blood Count 9.3 Red Blood Count 3.73 L Hemoglobin 12.5 L Hematocrit 36.6 L Mean Corpuscular Volume 98.3 H Mean Corpuscular Hemoglobin 33.4 H Mean Corpuscular Hemoglobin Concent 34.0 Red Cell Distribution Width 15.9 H Platelet Count 281 Mean Platelet Volume 6.9 L Neutrophils (%) (Auto) 78.2 H Lymphocytes (%) (Auto) 10.9 L Monocytes (%) (Auto) 9.1 Eosinophils (%) (Auto) 1.6 Basophils (%) (Auto) 0.2 Neutrophils # (Auto) 7.3 Lymphocytes # (Auto) 1.0 L Monocytes # (Auto) 0.8 Eosinophils # (Auto) 0.1 Basophils # (Auto) 0.0 CBC Comment D-Dimer 0.48 D-Dimer Comment Sodium Level 143 Potassium Level 4.3 Chloride Level 108 H Carbon Dioxide Level 29.7 Anion Gap 5 L Blood Urea Nitrogen 24 H Creatinine 1.16 H Estimated GFR/1.73 m2 62 BUN/Creatinine Ratio 20.7 H Glucose Level 103 Calcium Level 8.2 L Troponin I High Sensitivity 12 Pro-B-Type Natriuretic Peptide 260 H Albumin 3.3 L Chemistry Comments Medical Decision Making Findings Facility Status: ED Holds, [facility] process The plan was discussed with the patient, who demonstrates clear understanding of the plan and is in agreement with the plan unless otherwise noted in the chart. All questions have been answered, all concerns were addressed unless otherwise documented. I was available throughout their ED stay for frequent reassessment and questions. Differential Diagnoses (considered and possible or likely): [Most likely represents COPD exacerbation, less likely CHF, ACS, PE] ??Differential Diagnoses (considered and unlikely, not requiring evaluation currently): [Aortic/great vessels dissection was considered but it is unlikely based on absence of ripping, tearing, migratory chest pain, absence of syncope or focal neurologic deficits, physical examination indicating equal and symmetric pulses.] MDM Data Please see [facility] for the following: Independent Historians and external Records Review. Historian: [Patient] Independent Historians: ?[EMS] Medication Management: [Reviewed medication list] Social History and determinants: [Reviewed] Please see the body of the note for the following: Any independent interpretati ons of ECG, imaging studies. All vitals signs/haemodynamics, ordered tests were independently reviewed and interpreted by myself. Nursing triage complaint and vitals reviewed, additional nursing notes were reviewed as available and I agree unless otherwise noted or documented in contradiction in the chart Vital Signs: Independently reviewed Labs: Independently interpreted Imaging: Independently interpreted Old Medical Records: Independently reviewed, see [facility] for relevant summary and information Pulse Oximetry: [94% on room air] interpreted as [normal on room air] by me [Airline Radio Operator: [Regular Rate, Regular rhythm, no ectopy, NSR] reviewed and interpreted by me] Additionally notably showing: [Hemodynamically stable. Does not require supplemental oxygen despite EMS telling me that he needs it and the fact that he actually has a oxygen concentrator.] Laboratory workup notable for mild dehydration, no leukocytosis, known neutrophilic predominance, and negative troponin. BNP is mildly elevated not region criteria for CHF exacerbation. Chest x-ray is unremarkable. Tests considered but not ordered include: [Advanced imaging does not appear to be necessary given negative D-dimer] Social Determinants of Health Impact: Patient was evaluated in [facility] [place] with [place] access to healthcare due to below par ratio of patient to medical providers. [] Comorbid Conditions Impacting Present Evaluation and Care/Treatment: [COPD, homelessness] Management Discussions with other Healthcare Providers: [None] Treatment and Disposition Medication Management (Given or considered): [Breathing treatment, steroid, magnesium]. See EMR for details Consideration for Hospitalization/Escalation/Deescalation of Care: Admission for observation has been considered, [however the patient is able to tolerate p.o., their symptoms are controlled, they are able to rely on oral medications, and their chief complaint/diagnosis can be managed on outpatient basis.] ?ED Course:?[He is not hypoxic, he is markedly improved.] ?Shared decision making:?[Patient is hemodynamically stable for discharge home with follow with their primary care provider. [ ] Specific and cautious return precautions provided and discussed with full understanding. Any incidental findings were also discussed and follow up recommendations given. [] All questions answered. Patient/family were able to verbalize back return precautions. Patient/family agree to plan. Copies of imaging and laboratory studies were provided.] Code status:?FULL Please see the full Electronic Medical Record for full details of nursing documentation, medications list, other records of complete past medical history and conditions, vital signs, laboratory studies, and any radiologic study interpretations by radiologists. Portions of this note were completed using [employer] dictation software and as a result there may exist minor errors in spelling. I have reviewed elements of past family and social history and agree as included in note. Departure Disposition: 01 HOME / SELF CARE / HOMELESS Impression: Primary Impression: Acute exacerbation of chronic obstructive airways disease Condition: Improved Discharge Instructions: Chronic Obstructive Pulmonary Disease Exacerbation Referrals: NO PRIMARY CARE PROVIDER (PCP) Education Educated: Patient Educated regarding: diagnosis, treatment, prognosis, need for follow up Signature Scribe Signature: No scribe Attestation: This note accurately reflects clinical decisions, work performed by myself, DO BELKIS Craig NICHOLAS M DO Dec 23, 2024 04:32
[2024-12-23 05:51] VITALS: BP 95/55; PULSE 67; RESP 24; TEMP 97.9; O2SAT 97
--- NOTE | 2024-12-23 06:27 | ELECTROCARDIOGRAPH REPORT ---
[facility] Test Date: 2024-12-23 Test Time: 01:48:30 Pat Name: CHARLES COBOS Department: EMERGENCY ROOM Room: Gender: M Child Watch Attendant: : 1950 Requested By: SORAYA TAMAYO Order Number: [id number] Reading MD: Measurements Intervals [place] Rate: 81 P: 76 CA: 202 QRS: -65 QRSD: 134 T: 72 QT: 397 QTc: 461 Interpretive Statements Sinus rhythm RBBB and LAFB ST elevation, consider inferior injury Please click the below link to view image of tracing.
== END 2024-12-23 05:52 | disposition home or self-care (01) ==
LOC: ER 01:45
DX: J44.1 Chronic obstructive pulmonary disease with (acute) exacerbation (principal); I50.9 Heart failure, unspecified; M19.90 Unspecified osteoarthritis, unspecified site; F10.90 Alcohol use, unspecified, uncomplicated; Y90.9 Presence of alcohol in blood, level not specified
CPT/HCPCS: 36415; 71045; 80048; 83880; 84484; 85025; 85379; 93005; 96365; 96375; 99285; J2060; J2919

== ENCOUNTER 2024-12-23 18:38 | Inpatient (IN) | payer OTHER, MEDICARE ==
[~2024-12-23] VITALS: Ht 177.8 cm; Wt 83.0 kg
--- NOTE | 2024-12-23 19:28 | Physician Documentation ---
History of Present Illness ~ Chief Complaint: Shortness of Breath Stated Complaint: SOB Time Seen by MD: 19:12 Primary Medical Doctor: alice Mode of Arrival: EMS HPI This is an 83-year-old gentleman who comes in for evaluation of shortness a breath. He was seen by myself earlier today, and subsequently discharged after treatment of COPD exacerbation. P returns for go in and worsening shortness of breath, not accompanied by chest pain. Similar in identical to prior COPD exacerbation. No obvious trigger provocation. Medication Reconciliation Allergies: Coded Allergies: No Known Allergies (Unverified , 10/29/21) Scheduled Budesonide/Formoterol Fumarate (Symbicort 80-4.5 Mcg Inhaler), 2 PUFFS INH Q12H Nicotine 14 MG Patch* (Habitrol 14 MG Patch*), 1 PATCH TD DAILY Tiotropium Br/Olodaterol HCl (Stiolto Respimat Inhal [place]), 1 PUFF INH QAM, (Reported) Scheduled PRN Albuterol Sulfate (Proair Hfa), 2 PUFFS INH Q4HPRN PRN for wheezing Past Medical History Past Medical History: Congestive Heart Failure, COPD, GERD, Hernia, Arthritis, Chronic Back Pain Past Surgical History: other Other Past Surgical History: left inguinal hernia sx Alcohol Use: Heavy Drug Use: none Lives In: Homeless Occupation: unemployed Review of Systems ROS 10 point review of systems was performed and unless noted above in HPI is negative for acute process/complaint. Physical Exam Vital Signs: Temperature: 98.2, Source: Oral, Heart Rate: 90, Respiratory Rate: 26, BP: 112/69, Pulse Oximetry: 98, Weight: 83.000 Oxygen Flow Rate: 2.0 Physical Exam GENERAL: Awake, alert, oriented, GCS 15, no apparent distress, non-toxic appearing, answers questions, follows commands appropriately. Examined in bed 7. HEENT: Atraumatic, normocephalic, pupils equal, extraocular muscles intact, sclerae anicteric, mucus membranes moist, oropharynx is clear, no stridor. NECK: supple, full active range of motion, trachea midline, no thyromegaly, no lymphadenopathy, no JVD. CARDIOVASCULAR: Tachycardic and regular rate/rhythm, no murmurs/gallops/rubs, Pulses are 2+ in all extremities and symmetric. Capillary refill less than 2 seconds. PULMONARY: Tachypneic, decreased air movement ,no respiratory distress, speaking in short sentences, coarse breath sounds bilaterally, bilateral left greater than right expiratory wheezing, no ronchi, no rales, intermittent access ory muscle use. GASTROINTESTINAL: Soft, non-tender, non-distended, normal active bowel sounds, no organomegaly, no pulsatile masses, no CVA tenderness. NEUROLOGIC: Lucid with normal mental status. Normal facial symmetry. Moves all extremities symmetrically and with purpose. No truncal ataxia. Speech is fluid without evidence of dysarthria or aphasia, no focal deficits appreciated. MUSCULOSKELETAL: There is full range of motion of all extremities. There is no joint pain or joint swelling or joint erythema. There is no muscle pain or tenderness or swelling. EXTREMITIES: warm, well-perfused, no cyanosis, no clubbing, no edema, no acute deformities. Skin: warm, dry, no rashes or lesions, no jaundice, no petechiae orpurpura. No ecchymosis. PSYCHIATRIC: Normal affect, normal insight, normal concentration. Focused exam: [] Progress Results/Orders Results/Orders Orders - SORAYA TAMAYO DO Albuterol 2.5mg/3ml Nebule (Proventil 2. (12/23/24 19:20) * Rt Notification Q1H (12/23/24 19:20) Electrocardiogram (12/23/24 19:20) Chest,Single View (12/23/24 19:30) Monitor (12/23/24 19:20) Oxygen (12/23/24 19:20) Saline Lock (12/23/24 19:20) Completed Orders - SORAYA TAMAYO DO Methylprednisolone Sod Succ (Solumedrol (12/23/24 19:20) Magnesium Sulf-Water 2g/50ml (Magnesium (12/23/24 19:20) Cbc/Diff (12/23/24 19:20) ESR (12/23/24 19:20) C-Reactive Protein (12/23/24 19:20) Chest,Single View (12/23/24 19:30) MG (12/23/24 19:20) Azithromycin/Ns 500mg/250ml (Zithromax/N (12/23/24 19:20) Normal Saline 1000ml (Sodium Chloride 10 (12/23/24 19:20) CMP (12/23/24 19:20) Hs Troponin I W Calculations (12/23/24 19:20) Hs Troponin I W Calculations (12/23/24 21:20) Medications Received in ER Medications (Trade) Dose Ordered Sig/Nerissa Route PRN Reason Start Time Stop Time Status Last Admin Dose Admin (Proventil 2.5 MG/3ML nebule) 10 mg Q1H PRN CONTNEB SOB or wheezing 12/23/24 19:20 12/23/24 21:29 10 MG (SoluMEDROL 125mg inj) 125 mg ONCE ONCE IV 12/23/24 19:20 12/23/24 19:27 DC 12/23/24 19:38 125 MG Magnesium Sulfate 50 ml @ 100 mls/hr ONCE ONCE IV 12/23/24 19:20 12/23/24 19:49 DC 12/23/24 19:39 100 MLS/HR Azithromycin 250 ml @ 250 mls/hr ONCE ONCE IV 12/23/24 19:20 12/23/24 20:19 DC 12/23/24 19:39 250 MLS/HR (sodium chloride 1000ml IV soln) 1,000 ml ONCE ONCE IVB 12/23/24 19:20 12/23/24 19:24 DC 12/23/24 19:39 1,000 ML Vital Signs 12/23/24 12/23/24 12/23/24 12/23/24 18:41 18:46 19:38 20:30 Temp 98.2 Pulse 90 83 86 Resp 24 26 22 20 B/P (MAP) 112/69 Pulse Ox 98 97 97 O2 Flow Rate 2.0 12/23/24 12/23/24 21:30 22:05 Pulse 85 89 Resp 22 17 Pulse Ox 97 96 Laboratory Tests Test 12/23/24 19:33 12/23/24 20:55 White Blood Count 8.1 Red Blood Count 3.57 L Hemoglobin 11.9 L Hematocrit 35.0 L Mean Corpuscular Volume 98.2 H Mean Corpuscular Hemoglobin 33.3 H Mean Corpuscular Hemoglobin Concent 33.9 Red Cell Distribution Width 16.1 H Platelet Count 301 Mean Platelet Volume 6.8 L Neutrophils (%) (Auto) 88.0 H Lymphocytes (%) (Auto) 5.9 L Monocytes (%) (Auto) 6.1 Eosinophils (%) (Auto) 0 Basophils (%) (Auto) 0 Neutrophils # (Auto) 7.1 Lymphocytes # (Auto) 0.5 L Monocytes # (Auto) 0.5 Eosinophils # (Auto) 0.0 Basophils # (Auto) 0.0 CBC Comment Erythrocyte Sedimentation Rate 6 Sodium Level 143 Potassium Level 4.4 Chloride Level 107 Carbon Dioxide Level 27.9 Anion Gap 8 Blood Urea Nitrogen 24 H Creatinine 1.05 Estimated GFR/1.73 m2 69 BUN/Creatinine Ratio 22.9 H Glucose Level 112 H Calcium Level 8.5 Magnesium Level 2.6 H Total Bilirubin 0.5 Aspartate Amino Transf (AST/SGOT) 18 Alanine Aminotransferase (ALT/SGPT) 18 Alkaline Phosphatase 52 Troponin I High Sensitivity 9 10 Troponin I High Sens Percent Delta 25 11 Troponin I Hi Sens Absolute Change -3 1 C-Reactive Protein 0.05 Total Protein 6.0 L Albumin 3.2 L Globulin 2.8 Albumin/Globulin Ratio 1.1 Chemistry Comments Medical Decision Making Findings Facility Status: ED Holds, [facility] process The plan was discussed with the patient, who demonstrates clear understanding of the plan and is in agreement with the plan unless otherwise noted in the chart. All questions have been answered, all concerns were addressed unless otherwise documented. I was available throughout their ED stay for frequent reassessment and questions. Differential Diagnoses (considered and possible or likely): [COPD exacerbation, CHF exacerbation, combined process, less likely ACS, unlikely to represent PE given his negative D-dimer during at previous visit at 0.48. Pneumothorax hemothorax, hydrothorax has been considerably less likely.] ??Differential Diagnoses (considered and unlikely, not requiring evaluation currently): [No evidence of trauma. Unlikely to represent esoteric causes of shortness a breath such as mitochondrial poisoning, anemia] MDM Data Please see HPI for the following: Independent Historians and external Records Review. Historian: [Patient] Independent Historians: ?[EMS] Medication Management: [Reviewed medication list] Social History and determinants: [Reviewed] Please see the body of the note for the following: Any independent interpretations of ECG, imaging studies. All vitals signs/haemodynamics, ordered tests were independently reviewed and interpreted by myself. Nursing triage complaint and vitals reviewed, additional nursing notes were reviewed as available and I agree unless otherwise noted or documented in contradiction in the chart Vital Signs: Independently reviewed Labs: Independently interpreted Imaging: Independently interpreted Old Medical Records: Independently reviewed, see HPI for relevant summary and information Pulse Oximetry: [92%] interpreted as [normal on room air] by me [Director Life Sales: [Regular Rate, Regular rhythm, no ectopy, NSR] reviewed and interpreted by me] Additionally notably showing: [Hemodynamically stable. No evidence of hypoxia. Laboratory workup was unremarkable including negative troponin.] Chest x-ray consistent with COPD Tests considered but not ordered include: [Advanced imaging does not appear to be necessary given negative D-dimer earlier this morning] Social Determinants of Health Impact: Patient was evaluated in [facility] [place] with limited access to formerly regional medical center due to below par ratio of patient to medical providers. [] Comorbid Conditions Impacting Present Evaluation and Care/Treatment: [COPD] Management Discussions with other Healthcare Providers: [Hospitalist regarding admission] Treatment and Disposition Medication Management (Given or considered): []. See EMR for details Consideration for Hospitalization/Escalation/Deescalation of Care: Admission for observation has been considered, and the patient can benefit from brief period of observation for further management and improvement of his COPD ?ED Course:?[No significant improvement of shortness a breath despite of repeated breathing treatments] ?Shared decision making:?[] Code status:?FULL Please see the full Electronic Medical Record for full details of nursing documentation, medications list, other records of complete past medical history and conditions, vital signs, laboratory studies, and any radiologic study interpretations by radiologists. Portions of this note were completed using [employer] dictation software and as a result there may exist minor errors in spelling. I have reviewed elements of past family and social history and agree as included in note. Departure Impression: Primary Impression: Acute exacerbation of chronic obstructive airways disease Condition: Stable Referrals: NO PRIMARY CARE PROVIDER (PCP) Signature Scribe Signature: No scribe Attestation: This note accurately reflects clinical decisions, work performed by myself, DO BELKIS Craig NICHOLAS M DO Dec 23, 2024 19:28
[2024-12-23] MEDS: albuterol 2.5 MG/3 ML nebule CONTNEB PRN (19:33)
[2024-12-23 19:38] VITALS: PULSE 83; PULSE 94; RESP 22; RESP 24; O2SAT 95; O2SAT 97
[2024-12-23] MEDS: methylPREDNISolone sod succ 125mg/2ml vial IV ONE (19:38)
[2024-12-23] MEDS: azithromycin/NS 500mg/250ml 250 ML IV ONE (19:39)
[2024-12-23] MEDS: normal saline 1000ML IV soln IVB ONE (19:39)
[2024-12-23] MEDS: magnesium sulf-water 2g/50mL 50 ML IV ONE (19:39)
[2024-12-23 19:49] LABS: BASOPHILS % (AUTO) 0 % (0-1); EOSINOPHILS % (AUTO) 0 % (0-6); HEMOGLOBIN 11.9 g/dl (14.0-17.9); LYMPHOCYTES # (AUTO) 0.5 X10'3 (1.1-4.8); LYMPHOCYTES % (AUTO) 5.9 % (21-51); MEAN CORPUSCULAR HEMOGLOBIN 33.3 PG (27.0-31.0); MEAN CORPUSCULAR HGB CONC 33.9 g/dL (33.0-36.5); MEAN CORPUSCULAR VOLUME 98.2 FL (78-98); MEAN PLATELET VOLUME 6.8 FL (7.4-10.4); MONOCYTES # (AUTO) 0.5 X10'3 (0-0.9); MONOCYTES % (AUTO) 6.1 % (2-12); NEUTROPHILS # (AUTO) 7.1 X10'3 (1.8-7.7); PLATELET COUNT 301 X10'3 (140-440); RED BLOOD COUNT 3.57 X10'6 (4.70-6.10); RED CELL DISTRIBUTION WIDTH 16.1 % (11.5-14.5); WHITE BLOOD COUNT 8.1 X10'3 (4.5-11.0)
[2024-12-23 20:03] LABS: ALANINE AMINOTRANSFERASE 18 U/L (12-78); ALBUMIN 3.2 G/DL (3.4-5.0); ALBUMIN/GLOBULIN RATIO 1.1 (1.1-1.5); ALKALINE PHOSPHATASE 52 IU/L (46-116); ANION GAP 8 (8-16); ASPARTATE AMINO TRANSFERASE 18 U/L (10-37); BILIRUBIN,TOTAL 0.5 MG/DL (0.1-1.0); BLOOD UREA NITROGEN 24 MG/DL (7-18); BUN/CREATININE RATIO 22.9 (10.0-20.0); C-REACTIVE PROTEIN 0.05 MG/DL (0.0-0.5); CALCIUM 8.5 MG/DL (8.5-10.1); CHLORIDE 107 MMOL/L (99-107); CREATININE 1.05 MG/DL (0.60-1.10); GLUCOSE 112 MG/DL (70-104); MAGNESIUM 2.6 MG/DL (1.5-2.4); POTASSIUM 4.4 MMOL/L (3.5-5.1); SODIUM 143 MMOL/L (135-145); TOTAL CARBON DIOXIDE 27.9 MMOL/L (24-32); eCRCL 64 ML/MIN; eGFR 69 ML/MIN
[2024-12-23 20:30] VITALS: PULSE 86; RESP 20; O2SAT 97
[2024-12-23 21:30] VITALS: PULSE 85; RESP 22; O2SAT 97
--- NOTE | 2024-12-23 21:36 | RADIOLOGY REPORT ---
CHEST RADIOGRAPH Indication: Shortness a breath Technique: Single frontal view of the chest was obtained Comparison: DI CHEST,SINGLE VIEW on DOS: 12/23/24, CHEST,SINGLE VIEW on DOS: 10/29/21, CHEST,SINGLE VIEW on DOS: 06/07/21 FINDINGS: Lines and Tubes: None Lungs: Right lower lung zone opacity with indistinctness of the right lateral hemidiaphragm. Hyperinf lation of the lungs. Pleura: No effusion. No pneumothorax. Cardiomediastinal contours: Unremarkable Bones: Multiple old right-sided rib fracture deformities. IMPRESSION: Right lateral lung base atelectasis. Otherwise no evidence for acute cardiopulmonary disease. Hyperinflation of the lungs which may be from Emphysematous changes.
[2024-12-23 22:05] VITALS: PULSE 89; RESP 17; O2SAT 96
[2024-12-23] MEDS ORDERED: mag hydrox/Alum hydrox/simeth 30ml oral suspension PO PRN (22:50)
[2024-12-23] MEDS ORDERED: magnesium hydroxide 30ml (MOM) UD suspension PO PRN (22:50)
[2024-12-23] MEDS ORDERED: magnesium sulf-water 2g/50mL 50 ML IV PRN (22:50)
[2024-12-23] MEDS ORDERED: acetaminophen 325mg tablet PO PRN ×2 (22:50)
[2024-12-23] MEDS ORDERED: ondansetron/PF 4mg/2ml inj IV PRN (22:50)
[2024-12-23] MEDS ORDERED: magnesium Cl slow-release 64mg tablet PO PRN (22:50)
[2024-12-23] MEDS ORDERED: potassium Cl 20 mEq SR tablet PO PRN ×2 (22:50)
[2024-12-23] MEDS ORDERED: potassium Cl 40MEQ/1/2NS 520ml 520 ML IV PRN (22:50)
[2024-12-23] MEDS ORDERED: HYDROmorphone inj. 0.5 MG/0.5 ML DISP.SYRIN IV PRN (22:50)
[2024-12-23] MEDS ORDERED: magnesium sulf-water 4G/100mL 100 ML IV PRN (22:50)
[2024-12-23] MEDS: ipratropium/albuterol 3ml nebule NEB SCH (23:00)
--- NOTE | 2024-12-23 23:00 | HISTORY AND PHYSICAL-Residence ---
History & Physical Providers to CC Resident Creating Document: LETICIA TAO RES ~ History of Present Illness Primary Medical Doctor: alice Reason for Admit\Complaint: Shortness of breadth History of Present Illness 74-year-old male with past medical history of COPD(on 4 L of home oxygen), multiple bone fractures, nicotine use disorder presented to the ER with the chief complaints of severe shortness of breathe , aggravated for the past couple of days, associated with orthopnea and PND and relieving with two pillows and head elevation. He do reports swelling of legs, extended from bilateral feet to above knee. He denied chest pain, palpitations, syncope, wheezing, fever, cough, bladder and bowel issues. Discuss code status with the patient and patient wants to be full code. Allergies: Coded Allergies: No Known Allergies (Unverified , 10/29/21) Home Medications Home Medications Active Habitrol 14 MG Patch* (Nicotine) 1 Each Patch.td24 1 Patch TD DAILY Symbicort 80-4.5 Mcg Inhaler (Budesonide/Formoterol Fumarate) 10.2 Gm Hfa.aer.ad 2 Puffs INH Q12H 30 Days Proair Hfa (Albuterol Sulfate) 1 Puff Inh 2 Puffs INH Q4HPRN PRN 21 Days Reported Stiolto Respimat Inhal [place] (Tiotropium Br/Olodaterol HCl) 4 Gm Mist.inhal 1 Puff INH QAM Past Medical History Past Medical History COPD Nicotine use disorder for the past 50 years Past Surgical History Surgical History Comment Noncontributory Family History Family History: Patient reports no known family medical history. Past Social History Social History Comment Chronic smoker for the past 50 years, less than one pack of cigarettes per day Marijuana-POT once in a while Denied alcohol, methamphetamine use Smoking: Cigarettes, Less than 1 pack/day Alcohol Use: Heavy Drug Use: None Lives In: Homeless Occupation: unemployed ROS All Other Systems: Reviewed and Negative ROS Reviewed in full and negative except positive pertinent as in HPI Exam Vitals: Vital Signs Date Time Temp Pulse Resp B/P (MAP) Pulse Ox O2 Delivery O2 Flow Rate FiO2 12/23/24 22:05 89 17 96 12/23/24 18:46 12/23/24 18:41 98.2 2.0 General: GENERAL: Awake, alert, oriented, GCS 15, no apparent distress, non-toxic appearing, answers questions, follows commands appropriately. Examined in bed 7. HEENT: Atraumatic, normocephalic, pupils equal, extraocular muscles intact, sclerae anicteric, mucus membranes moist, oropharynx is clear, no stridor. NECK: supple, full active range of motion, trachea midline, no thyromegaly, no lymphadenopathy, no JVD. CARDIOVASCULAR: Tachycardic and regular rate/rhythm, no murmurs/gallops/rubs, Pulses are 2+ in all extremities and symmetric. Capillary refill less than 2 seconds. PULMONARY: Tachypneic, decreased air movement ,no respiratory distress, speaking in short sentences, coarse breath sounds bilaterally, bilateral left greater than right expiratory wheezing. Coarse crepitations in Bilateral infrascapular and interscapular area. intermittent accessory muscle use. GASTROINTESTINAL: Soft, non-tender, non-distended, normal active bowel sounds, no organomegaly, no pulsatile masses, no CVA tenderness. NEUROLOGIC: Lucid with normal mental status. Normal facial symmetry. Moves all extremities symmetrically and with purpose. No truncal ataxia. Speech is fluid without evidence of dysarthria or aphasia, no focal deficits appreciated. MUSCULOSKELETAL: There is full range of motion of all extremities. There is no joint pain or joint swelling or joint erythema. There is no muscle pain or tenderness or swelling. EXTREMITIES: warm, well-perfused, no cyanosis, clubbing is present. no edema, no acute deformities. Skin: warm, dry, no rashes or lesions, no jaundice, no petechiae orpurpura. No ecchymosis. PSYCHIATRIC: Normal affect, normal insight, normal concentration. Diagnostic Data Last Recorded Lab Results: 12/24/24 0300 12/24/24 0300 Advance Care Planning Advanced Care planning: Add on additional 30 min Additional Plan Acute hypoxemic respiratory failure likely 2/2 below Acute exacerbation of advanced COPD Tachypnea is noted and oxygen via nasal cannula at the rate of 2-5 ProBNP is 511 and troponins are negative CBC okay Chest x-ray showing hyperinflation of lungs-emphysema and right lung base atelectasis Received 125 methylprednisolone status on magnesium sulfate, azithromycin, 1 L of normal saline in ER Started on ceftriaxone and azithromycin daily dose to cover Gram-positive, Gram- negative, atypical organisms We will continue methylprednisolone 60 mg q.8h IV, albuterol 2.5 mg q.2h p.r.n. and DuoNeb q.4 scheduled Is on incentive spirometry q.1h while awake Ordered echocardiogram and we will follow up with the results Mild macrocytic anemia Hemoglobin is 11.9 and hematocrit is 35. Continue to monitor H and H Nicotine use disorder On nicotine patch 21 mg Code status: Full code Diet: Heart healthy diet DVT prophylaxis: SubQ heparin PT: Ordered Prognosis: Guarded Leticia LAINEZ resident Date of Service: Dec 23, 2024 Billing Provider: MATT PERRY MD Common Visit Codes: [id number] INP/OBS CARE (HIGH) Assessment/Plan Assessment Evaluated the patient with the help of residents. Discussed the case with them. Reviewed notes by Dr.Suragani CALHOUN. agree with his assessments and plans. I also reviewed the patient's records. No additional points at this time. LETICIA TAO, RES Dec 23, 2024 23:00 MATT PERRY MD Dec 24, 2024 06:48
[2024-12-23 23:15] LABS: HEMOGLOBIN A1C 5.4 % (4.5-6.2)
[2024-12-24] VITALS (24 sets, daily range): BP systolic 104–120; BP diastolic 54–68; PULSE 64–86; RESP 16–28; TEMP 97.1–98; O2SAT 94–100
[2024-12-24] MEDS: albuterol 2.5 MG/3 ML nebule NEB PRN (00:59)
[2024-12-24 01:06] LABS: PRO BRAIN NATRIURETIC PEPTIDE 511 PG/ML (0-125)
[2024-12-24] MEDS: CefTRIAXone/D5W-Rocephin 1gm 50 ML IV SCH (02:05)
[2024-12-24] MEDS: methylPREDNISolone sod succ/PF 40mg inj. IV SCH (02:05)
[2024-12-24] MEDS: nicotine 21mg patch - 24 hr TD ONE (02:06)
[2024-12-24] MEDS: Melatonin 3mg tablet PO SCH (02:06)
[2024-12-24] MEDS: heparin, porcine 5000 units/ml vial SQ SCH (02:06)
[2024-12-24] MEDS: LORazepam 1 MG tablet PO ONE (02:27)
[2024-12-24 03:06] LABS: BASOPHILS % (AUTO) 0.1 % (0-1); EOSINOPHILS % (AUTO) 0 % (0-6); HEMATOCRIT 34.2 % (42.0-52.0); HEMOGLOBIN 11.5 g/dl (14.0-17.9); LYMPHOCYTES # (AUTO) 0.4 X10'3 (1.1-4.8); LYMPHOCYTES % (AUTO) 4.1 % (21-51); MEAN CORPUSCULAR HEMOGLOBIN 33.2 PG (27.0-31.0); MEAN CORPUSCULAR HGB CONC 33.5 g/dL (33.0-36.5); MEAN CORPUSCULAR VOLUME 98.9 FL (78-98); MEAN PLATELET VOLUME 6.7 FL (7.4-10.4); MONOCYTES # (AUTO) 0.2 X10'3 (0-0.9); MONOCYTES % (AUTO) 2.3 % (2-12); NEUTROPHILS # (AUTO) 8.3 X10'3 (1.8-7.7); NEUTROPHILS % (AUTO) 93.5 % (42-75); PLATELET COUNT 268 X10'3 (140-440); RED BLOOD COUNT 3.45 X10'6 (4.70-6.10); RED CELL DISTRIBUTION WIDTH 16.1 % (11.5-14.5); WHITE BLOOD COUNT 8.9 X10'3 (4.5-11.0)
[2024-12-24 03:21] LABS: ALANINE AMINOTRANSFERASE 18 U/L (12-78); ALBUMIN 3.1 G/DL (3.4-5.0); ALBUMIN/GLOBULIN RATIO 1.1 (1.1-1.5); ALKALINE PHOSPHATASE 51 IU/L (46-116); ANION GAP 11 (8-16); ASPARTATE AMINO TRANSFERASE 17 U/L (10-37); BILIRUBIN,TOTAL 0.4 MG/DL (0.1-1.0); BLOOD UREA NITROGEN 26 MG/DL (7-18); BUN/CREATININE RATIO 22.4 (10.0-20.0); CHLORIDE 105 MMOL/L (99-107); CHOL/HDL RATIO 1.5 (0.00-4.99); CHOLESTEROL 185 MG/DL (0-200); CREATININE 1.16 MG/DL (0.60-1.10); GLUCOSE 171 MG/DL (70-104); HDL CHOLESTEROL 122 MG/DL (35-60); LDL CHOLESTEROL 37 MG/DL (50-100); MAGNESIUM 2.6 MG/DL (1.5-2.4); POTASSIUM 4.4 MMOL/L (3.5-5.1); SODIUM 142 MMOL/L (135-145); TOTAL CARBON DIOXIDE 26.4 MMOL/L (24-32); TOTAL PROTEIN 5.8 G/DL (6.4-8.2); TRIGLYCERIDES 33 MG/DL (20-135); eCRCL 58 ML/MIN; eGFR 62 ML/MIN
[2024-12-24 03:25] LABS: CALCIUM 8.2 MG/DL (8.5-10.1)
--- NOTE | 2024-12-24 06:11 | ELECTROCARDIOGRAPH REPORT ---
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
[2024-12-24] MEDS: docusate sod 100mg capsule PO SCH (07:19)
[2024-12-24] MEDS: K and/or MAG REPLACEMENT MC SCH (07:20)
[2024-12-24] MEDS: normal saline 1000ml 1,000 ML IV SCH (09:24)
[2024-12-24 09:25] LABS: ABG BASE EXCESS -2.4 mmol/L (-2.0-3.0); ABG HCO3 22.7 mmol/L (21.0-28.0); ABG OXYGEN SATURATION 96.7 % (94.0-98.0); ABG PCO2 (T) 40.3 mmHg (35.0-48.0); ABG PH (T) 7.368 (7.350-7.450); ABG PO2 (T) 86.8 mmHg (83.0-108.0); ALLEN'S TEST POSITIVE; FCOHb 0.5 % (0.5-1.5); FHHb 3.3 % (0.0-5.0); FLOW 4 L/min; FMetHb 0.3 % (0.0-1.5); FO2Hb 95.9 % (94.0-98.0); MODE NASAL CANNULA; TOTAL HEMOGLOBIN 12.3 G/dl (13.5-17.5)
--- NOTE | 2024-12-24 11:31 | PROGRESS NOTE ---
Daily Progress Note Providers to CC ~ Antibiotic Timeout Antibiotic Ordered?: Yes Subjective No acute events overnight. Patient examined at bedside. No new complaints. Patient denies chest pain, palpitations, abdominal pain, n/v/d. Continued on supplemental oxygen, bronchodilator, steroid. Vss, labs unremarkable. Objective Vital Signs Date Time Temp Pulse Resp B/P (MAP) Pulse Ox O2 Delivery O2 Flow Rate FiO2 12/24/24 10:47 86 28 Nasal Cannula 4.0 12/24/24 10:36 98 36 12/24/24 06:00 97.2 120/68 (85) Result Diagram: 12/24/24 0300 12/24/24 0300 Physical Exam General: Generalized weakness, A&Ox 3, NAD HEENT: Normocephalic, PERRLA Neck: Supple, trachea midline, no JVD Chest: Clear to auscultation bilaterally Cardiovascular: RRR, S1&S2 GI: Soft and nontender Extremities: No cyanosis/clubbing/or edema ASSISTANT PROPERTY MANAGER: CN II-XII intact, no focal deficits Musculoskeletal: No paraspinal muscle tenderness, no muscle spasm Skin: linear laceration, LLE; no s/s infection Problem\Assessment\Plan # COPD exacerbation # Emphysema # Acute hypoxic respiratory failure likely 2/2 COPD exacerbation -12/24: supplemental oxygen, steroid, bronchodilator, empirical abx; Well's score 0, follow CT chest w/o # Normocytic anemia -H/H stable, follow labs # Nicotine dependence -nicotine patch # Wound, LLE -traumatic wound, laceration of LLE wo s/s of infection; wound care consult Code status: Full code DVT prophylaxis: heparin Date of Service: Dec 24, 2024 Billing Provider: SELIN BUNCH Common Visit Codes: [id number] INP/OBS CARE (HIGH) SELIN BUNCH Dec 24, 2024 11:31
--- NOTE | 2024-12-24 13:43 | RADIOLOGY REPORT ---
Indication: emphysema, copd, resp failure Technique: CT axial images of the abdomen and pelvis are obtained without contrast. Coronal and sagit miriam reformats were obtained. Radiation Dose Information: CTDI volume is 13 mGy. Dose-length product is 500 mGy*cm Comparison: None FINDINGS: There is limited interpretation of the abdomen and pelvis without administration of intravenous contr ast. Trachea patent. No pneumothorax. Pulmonary emphysematous changes. Bibasilar atelectasis. Right middl e lobe atelectasis/scarring. No significant pleural effusion. Heart normal in size. Coronary artery calcification disease. Aneurysmal dilatation of the ascending aorta to 4.6 cm. No supraclavicular, axillary lymphadenopathy. Subacute to old posterolateral right fractures. Mild thoracolumbar degenerative disc disease. IMPRESSION: 1. Aneurysmal dilatation of ascending aorta to 4.6 cm. Recommend thoracic surgery consultation for fu rther management. 2. Emphysema, bibasilar and right middle lobe atelectasis. 3. Coronary calcifications. 4. Other findings as described.
[2024-12-24] MEDS: LORazepam 1 MG tablet PO PRN (17:35)
[2024-12-24] MEDS: azithromycin/NS 500mg/250ml 250 ML IV SCH (20:27)
[2024-12-25] VITALS (20 sets, daily range): BP systolic 92–117; BP diastolic 51–85; PULSE 63–89; RESP 18–36; TEMP 97.5–97.8; O2SAT 94–97
[2024-12-25 06:08] LABS: BASOPHILS % (AUTO) 0.2 % (0-1); EOSINOPHILS % (AUTO) 0 % (0-6); HEMOGLOBIN 11.2 g/dl (14.0-17.9); LYMPHOCYTES # (AUTO) 0.3 X10'3 (1.1-4.8); LYMPHOCYTES % (AUTO) 3.3 % (21-51); MEAN CORPUSCULAR HEMOGLOBIN 33.5 PG (27.0-31.0); MEAN CORPUSCULAR VOLUME 98.6 FL (78-98); MONOCYTES # (AUTO) 0.4 X10'3 (0-0.9); MONOCYTES % (AUTO) 3.9 % (2-12); NEUTROPHILS # (AUTO) 9.5 X10'3 (1.8-7.7); NEUTROPHILS % (AUTO) 92.6 % (42-75); PLATELET COUNT 267 X10'3 (140-440); RED BLOOD COUNT 3.35 X10'6 (4.70-6.10); WHITE BLOOD COUNT 10.2 X10'3 (4.5-11.0)
[2024-12-25 06:27] LABS: ALANINE AMINOTRANSFERASE 15 U/L (12-78); ALBUMIN 2.8 G/DL (3.4-5.0); ALBUMIN/GLOBULIN RATIO 1.1 (1.1-1.5); ALKALINE PHOSPHATASE 47 IU/L (46-116); ANION GAP 8 (8-16); ASPARTATE AMINO TRANSFERASE 15 U/L (10-37); BILIRUBIN,TOTAL 0.4 MG/DL (0.1-1.0); BLOOD UREA NITROGEN 26 MG/DL (7-18); BUN/CREATININE RATIO 26.3 (10.0-20.0); CALCIUM 8.2 MG/DL (8.5-10.1); CHLORIDE 106 MMOL/L (99-107); CREATININE 0.99 MG/DL (0.60-1.10); GLUCOSE 129 MG/DL (70-104); MAGNESIUM 2.2 MG/DL (1.5-2.4); POTASSIUM 4.5 MMOL/L (3.5-5.1); SODIUM 141 MMOL/L (135-145); TOTAL CARBON DIOXIDE 27.5 MMOL/L (24-32); TOTAL PROTEIN 5.3 G/DL (6.4-8.2); eCRCL 68 ML/MIN; eGFR 74 ML/MIN
[2024-12-25] MEDS: nicotine 14mg patch - 24hr TD SCH (08:45)
[2024-12-25] MEDS ORDERED: CEPH-585 PO (10:23)
[2024-12-25] MEDS ORDERED: ASPI81TA52 PO (10:23)
[2024-12-25] MEDS ORDERED: PRED10TA23 PO (10:23)
[2024-12-25] MEDS ORDERED: azithromycin/NS 500mg/250ml 250 ML IV ONE (10:25)
--- NOTE | 2024-12-25 12:04 | PROGRESS NOTE ---
Daily Progress Note Providers to CC ~ Antibiotic Timeout Antibiotic Ordered?: Yes Subjective No acute events overnight. Patient examined at bedside. No new complaints. Patient denies chest pain, palpitations, abdominal pain, n/v/d. Continued on supplemental oxygen, bronchodilator, steroid. Vss, labs unremarkable. End-stage COPD, dyspneic with ambulation with PT. Objective Vital Signs Date Time Temp Pulse Resp B/P (MAP) Pulse Ox O2 Delivery O2 Flow Rate FiO2 12/25/24 11:48 71 22 96 Nasal Cannula* 3 32 12/25/24 06:47 97.5 94/54 (67) Result Diagram: 12/25/24 0546 12/25/24 0546 Physical Exam General: Generalized weakness, A&Ox 3, NAD HEENT: Normocephalic, PERRLA Neck: Supple, trachea midline, no JVD Chest: Clear to auscultation bilaterally Cardiovascular: RRR, S1&S2 GI: Soft and nontender Extremities: No cyanosis/clubbing/or edema GROCERY SUPERVISOR: CN II-XII intact, no focal deficits Musculoskeletal: No paraspinal muscle tenderness, no muscle spasm Skin: linear laceration, LLE; no s/s infection Problem\Assessment\Plan # COPD exacerbation # End-stage COPD- POA # Emphysema # Acute hypoxic respiratory failure likely 2/2 COPD exacerbation -12/24: supplemental oxygen, steroid, bronchodilator, empirical abx; Well's score 0 -12/25: CT chest shows aneurysmal dilatation of ascending aorta to 4.6 cm- f/u outpatient for monitoring # Normocytic anemia -H/H stable, follow labs # Tobacco abuse, current # Nicotine dependence -nicotine patch # Wound, LLE -traumatic wound, laceration of LLE wo s/s of infection; wound care consult Code status: Full code DVT prophylaxis: heparin Date of Service: Dec 25, 2024 Billing Provider: SELIN BUNCH Common Visit Codes: [id number] INP/OBS CARE(HIGH) SELIN BUNCH Dec 25, 2024 12:04
[2024-12-25] MEDS: morphine 2 MG/ML inj. syringe IV PRN (14:50)
--- NOTE | 2024-12-25 17:34 | CARDIOLOGY REPORT ---
APPROVED REPORT EXAM: Comprehensive 2D, Doppler, and color-flow Echocardiogram. Patient Location: 3027 A Heart Rate: 77 bpm Rhythm: SINUS Indications COPD METH USE Peanut Picker: NONE Previous echo: 08-31-20 [facility] EF 60-65%, CELENA, RVE, Amaury, mMR, mTR, ASC AO 4.20 2D Dimensions RVDd 3.4 cm IVSd 0.9 (0.7-1.1cm) LVDd 5.1 cm PWd 0.9 (0.7-1.1cm) IVSs 1.1 (0.8-1.2cm) LVDs 3.5 (2.5-4.0cm) PWs 1.0 (0.8-1.2cm) LVOT Diameter 2.38 (1.8-2.4cm) LVEF(%) 59.6 (>50%) IVC 15.65 mm FS (%) 31.8 % SV 74.0 ml CO 5.7 L/min M-Mode Dimensions Left Atrium(MM) 4.05 (2.5-4.0cm) Aortic Root 4.05 (2.2-3.7cm) Aortic Cusp Exc 1.63 (1.5-2.0cm) MV EPSS 0.7 (<0.5cm) Aortic Valve AoV Peak Lio. 158.0 cm/s AoV VTI 31.2 cm AO Peak GR. 10.0 mmHg AO Mean GR. 5 mmHg LVOT VTI 26.94 cm LVOT Peak Lio. 118.2 cm/s MONA(VTI)/BSA 3.84 cm2/m2 MONA (VTI) 3.84 cm2 Mitral Valve MV E Velocity 83.8 cm/s MV DECEL TIME 200 ms MV A Velocity 73.9 cm/s E/A Ratio 1.1 TDI Lateral E' P. V14.68 cm/s E/Lateral E' 5.7 Tricuspid Valve TR P. Velocity 271 cm/s RAP ESTIMATE 10 mmHg TR Peak Gr. 29 mmHg RVSP 39 mmHg LEFT VENTRICLE Normal LV size and wall thickness. Overall systolic function is normal. LV septal flattening is prese nt, consistent with RV pressure/volume overload. LVEF is 60%. RIGHT VENTRICLE RV is mildly dilated in size with normal function. RVSP is estimated at 39 mmHg. ATRIA Left atrium is mildly dilated. AORTIC VALVE Trileaflet AV appears mildly sclerotic without stenosis. Severe insufficiency. JH/LVOT ratio measures 0.66. Flow reversal visualized with color and spectral Doppler in the descending aorta. MITRAL VALVE Mild MV annular calcification without stenosis. Trace regurgitation. TRICUSPID VALVE TV appears structurally normal with mild regurgitation. PULMONIC VALVE Normal PV without stenosis, physiologic insufficiency. GREAT VESSELS Aortic root is mildly dilated. IVC is normal in size and collapses greater than 50% with insp iration. PERICARDIUM Normal pericardium. No effusion. Other Information Study Quality: Adequate Conclusion Normal LV size and wall thickness. Overall systolic function is normal. LV septal flattening is prese nt, consistent with RV pressure/volume overload. LVEF is 60%. RV is mildly dilated in size with normal function. RVSP is estimated at 39 mmHg. Left atrium is mildly dilated. Trileaflet AV appears mildly sclerotic without stenosis. Severe insufficiency. JH/LVOT ratio measure s 0.66. Flow reversal visualized with color and spectral Doppler in the descending aorta. Mild MV annular calcification without stenosis. Trace regurgitation. TV appears structurally normal with mild regurgitation. Aortic root is mildly dilated. Normal pericardium. No effusion.
[2024-12-25] MEDS: traZODone 50mg tablet PO SCH (21:15)
[2024-12-25] MEDS: azithromycin/NS 500mg/250ml 250 ML IV SCH (21:16)
[2024-12-26] VITALS (9 sets, daily range): BP systolic 107; BP diastolic 50; PULSE 59–80; RESP 18–27; TEMP 97.4; O2SAT 92–99
[2024-12-26 06:04] LABS: BASOPHILS % (AUTO) 0.1 % (0-1); EOSINOPHILS % (AUTO) 0 % (0-6); HEMATOCRIT 32.2 % (42.0-52.0); LYMPHOCYTES # (AUTO) 0.3 X10'3 (1.1-4.8); LYMPHOCYTES % (AUTO) 4.5 % (21-51); MEAN CORPUSCULAR HEMOGLOBIN 33.4 PG (27.0-31.0); MEAN CORPUSCULAR HGB CONC 34.1 g/dL (33.0-36.5); MEAN CORPUSCULAR VOLUME 97.8 FL (78-98); MEAN PLATELET VOLUME 7.2 FL (7.4-10.4); MONOCYTES # (AUTO) 0.4 X10'3 (0-0.9); NEUTROPHILS # (AUTO) 6.9 X10'3 (1.8-7.7); NEUTROPHILS % (AUTO) 90.4 % (42-75); PLATELET COUNT 242 X10'3 (140-440); RED CELL DISTRIBUTION WIDTH 15.7 % (11.5-14.5); WHITE BLOOD COUNT 7.6 X10'3 (4.5-11.0)
[2024-12-26 06:25] LABS: ALANINE AMINOTRANSFERASE 15 U/L (12-78); ALBUMIN 2.6 G/DL (3.4-5.0); ALBUMIN/GLOBULIN RATIO 1.2 (1.1-1.5); ALKALINE PHOSPHATASE 44 IU/L (46-116); ANION GAP 7 (8-16); ASPARTATE AMINO TRANSFERASE 13 U/L (10-37); BILIRUBIN,TOTAL 0.3 MG/DL (0.1-1.0); BLOOD UREA NITROGEN 29 MG/DL (7-18); BUN/CREATININE RATIO 35.4 (10.0-20.0); CALCIUM 8.1 MG/DL (8.5-10.1); CHLORIDE 107 MMOL/L (99-107); CREATININE 0.82 MG/DL (0.60-1.10); GLUCOSE 135 MG/DL (70-104); MAGNESIUM 2.3 MG/DL (1.5-2.4); POTASSIUM 4.7 MMOL/L (3.5-5.1); SODIUM 143 MMOL/L (135-145); TOTAL CARBON DIOXIDE 28.9 MMOL/L (24-32); TOTAL PROTEIN 4.8 G/DL (6.4-8.2); eCRCL 82 ML/MIN; eGFR > 90 ML/MIN
[2024-12-26 09:12] LABS: HBSAG SCREEN Negative (Negative); HEP B CORE AB, IGM Negative (Negative); HEP B CORE AB, TOT Negative (Negative)
--- NOTE | 2024-12-26 12:09 | DISCHARGE SUMMARY ---
Discharge Summary Providers to CC ~ Discharge Summary Admission Diagnosis: acute COPD exacerbation Hospital Course DATE OF ADMISSION: 12/23/24 DATE OF DISCHARGE: 12/26/24 Discharge Diagnosis\\Comment: Acute COPD exacerbation End-stage COPD- POA Emphysema Acute hypoxic respiratory failure 2/2 COPD exacerbation Normocytic anemia Tobacco abuse, current Nicotine dependence Wound, LLE Operations\\Procedures: None Consultants: None Complications: None Condition on DC: Stable New Medications: Aspirin (Aspirin EC) 81 Mg Tablet.dr 1 TAB PO DAILY for 30 Days, #30 TAB Cephalexin*Monohydrate* (Keflex*) 500 Mg Capsule 2 CAP PO BID for 7 Days, #28 CAP Prednisone (Prednisone) 10 Mg Tablet 0 PO DAILY, #42 TAB Take 6 tabs/day x2 days then 5 daily x2 days 4 daily x2 days 3 daily x2 days 2 daily x2 days 1 daily x2 days then stop. Continued Medications: Albuterol Sulfate (Proair Hfa) 1 Puff Inh 2 PUFFS INH Q4HPRN PRN for wheezing for 21 Days, #1 INHALER 0 Refills Budesonide/Formoterol Fumarate (Symbicort 80-4.5 Mcg Inhaler) 10.2 Gm Hfa.aer.ad 2 PUFFS INH Q12H for 30 Days, #10.2 GM Discontinued Medications: Tiotropium Br/Olodaterol HCl (Stiolto Respimat Inhal [place]) 4 Gm Mist.inhal 1 PUFF INH QAM Discharge Summary: History of Present Illness From H&P: "Librado Olivo is a 74-year-old male with past medical history of COPD (on 4 L of home oxygen), multiple bone fractures, nicotine use disorder presented to the ER with the chief complaints of severe shortness of breathe , aggravated for the past couple of days, associated with orthopnea and PND and relieving with two pillows and head elevation. He do reports swelling of legs, extended from bilateral feet to above knee. He denied chest pain, palpitations, syncope, wheezing, fever, cough, bladder and bowel issues." Hospital Course Diagnostic findings were notable for hypoxia requiring higher supplemental oxygen than his baseline, CT chest revealing emphysema with bibasilar atelectasis and aneurysmal dilation of ascending aorta measured at 4.6 cm. Pertinent negative findings were wells score of 0, no leukocytosis, no tac hycardia, and negative troponin series. Patient was treated with steroid, bronchodilators, empirical antibiotics, supplemental oxygen. Patient did not experience further complications throughout the entire hospital stay and made a good recovery. Patient was seen and examined on the day of discharge. On day of discharge, vss and labs unremarkable. All labs, diagnostic workups, discharge plan discussed with patient in details during visit before discharge. All questions and concerns answered to the best of my professional knowledge. Patient is to be discharged back to [facility] and to follow-up with PCP for repeat imaging to monitor for aortic aneurysm. Patient is referred to pulmonary rehab upon discharge. Physical Exam General: Generalized weakness, A&Ox 3, NAD HEENT: Normocephalic, PERRLA Neck: Supple, trachea midline, no JVD Chest: Clear to auscultation bilaterally Cardiovascular: RRR, S1&S2 GI: Soft and nontender Extremities: No cyanosis/clubbing/or edema GEOTHERMAL TECHNICIAN: CN II-XII intact, no focal deficits Musculoskeletal: No paraspinal muscle tenderness, no muscle spasm Skin: linear abrasion, LLE; no s/s infection *Problems/Diagnosis: (1) Abrasion of left upper extremity Status: Acute Total Time Spent on D/C: > 30 Minutes Date of Service: Dec 26, 2024 Billing Provider: SELIN BUNCH Common Visit Codes: [id number] DISCH DAY >30min SELIN BUNCH Dec 26, 2024 12:08
== END 2024-12-26 11:53 | disposition home or self-care (01) | DRG 189 ==
LOC: ER 18:39 → ED HOLD 22:55 → PCU 3S 12-24 04:15
PROVIDERS: ADMIT Internal Medicine Critical Care Medicine; ATTEND Nurse Practitioner Family
DX: J96.01 Acute respiratory failure with hypoxia (principal); J44.1 Chronic obstructive pulmonary disease with (acute) exacerbation; D53.9 Nutritional anemia, unspecified; J43.9 Emphysema, unspecified; S40.812A Abrasion of left upper arm, initial encounter; S81.802A Unspecified open wound, left lower leg, initial encounter; I50.9 Heart failure, unspecified; K21.9 Gastro-esophageal reflux disease without esophagitis; X58.XXXA Exposure to other specified factors, initial encounter; Y93.89 Activity, other specified; Z79.899 Other long term (current) drug therapy; Y99.8 Other external cause status; Y92.89 Other specified places as the place of occurrence of the external cause; Z87.891 Personal history of nicotine dependence
CPT/HCPCS: 36415; 36600; 71045; 71250; 80053; 80061; 82803; 83036; 83735; 83880; 84484; 85018; 85025; 85651; 86140; 86704; 86705; 87081; 87340; 93005; 93306; 94640; 94668; 94760; 96365; 96375; 97116; 97161; 97530; 99285; A4615; A6223; A6446; A6449; G0378; J0456; J0696; J1644; J2270; J2919; J7030; J7040

== ENCOUNTER 2024-12-27 23:02 | Emergency (ER) | payer OTHER, MEDICARE, MEDICAID ==
[~2024-12-27] VITALS: Ht 177.8 cm; Wt 76.0 kg
[~2024-12-27 23:02] MED LIST changes: +ASPI81TA52 PO; +CEPH-585 PO; -NICO-631 TD; +PRED10TA23 PO; -TIOT4MIS3 INH
[2024-12-27] MEDS ORDERED: albuterol 2.5 MG/3 ML nebule CONTNEB PRN (23:35)
[2024-12-27 23:40] LABS: BASOPHILS % (AUTO) 0 % (0-1); EOSINOPHILS % (AUTO) 0 % (0-6); HEMATOCRIT 35.7 % (42.0-52.0); HEMOGLOBIN 11.8 g/dl (14.0-17.9); LYMPHOCYTES # (AUTO) 0.3 X10'3 (1.1-4.8); LYMPHOCYTES % (AUTO) 3.3 % (21-51); MEAN CORPUSCULAR HEMOGLOBIN 32.8 PG (27.0-31.0); MEAN CORPUSCULAR VOLUME 99.4 FL (78-98); MONOCYTES # (AUTO) 0.9 X10'3 (0-0.9); MONOCYTES % (AUTO) 9.1 % (2-12); NEUTROPHILS # (AUTO) 8.3 X10'3 (1.8-7.7); NEUTROPHILS % (AUTO) 87.6 % (42-75); PLATELET COUNT 256 X10'3 (140-440); RED BLOOD COUNT 3.59 X10'6 (4.70-6.10); RED CELL DISTRIBUTION WIDTH 15.9 % (11.5-14.5); WHITE BLOOD COUNT 9.4 X10'3 (4.5-11.0)
--- NOTE | 2024-12-27 23:57 | RADIOLOGY REPORT ---
EXAM: DI CHEST,TWO VIEWS CLINICAL HISTORY: SOB TECHNIQUE: PA and lateral views of the chest WID: COMPARISON: Chest radiograph from 12/23/2024 FINDINGS: Lines and tubes: None Chest: The heart size and pulmonary vasculature is within normal limits. No pleural effusion, pneumothorax, or consolidation. Linear bibasilar scarring or atelectasis. Hypere xpansion of the lungs. The osseous structures are grossly intact. Healed bilateral rib fracture deformities, more numerous o n the right. Mild multilevel thoracic spondylosis. IMPRESSION: 1. No acute cardiopulmonary abnormality. 2. Hyperexpansion of the lungs concordant with known COPD/ emphysema.
[2024-12-28 00:08] LABS: ALBUMIN 3.3 G/DL (3.4-5.0); ANION GAP 7 (8-16); BLOOD UREA NITROGEN 30 MG/DL (7-18); CALCIUM 8.6 MG/DL (8.5-10.1); CHLORIDE 106 MMOL/L (99-107); CREATININE 1.11 MG/DL (0.60-1.10); GLUCOSE 94 MG/DL (70-104); PRO BRAIN NATRIURETIC PEPTIDE 982 PG/ML (0-125); SODIUM 142 MMOL/L (135-145); TOTAL CARBON DIOXIDE 28.8 MMOL/L (24-32); eCRCL 60 ML/MIN; eGFR 65 ML/MIN
[2024-12-28] MEDS: methylPREDNISolone sod succ/PF 40mg inj. IV SCH (00:32)
[2024-12-28] MEDS: azithromycin 250mg tablet PO ONE (00:32)
[2024-12-28] MEDS ORDERED: AZIT-164 PO (00:50)
[2024-12-28] MEDS ORDERED: PRED20TA PO (00:50)
--- NOTE | 2024-12-28 00:50 | Physician Documentation ---
History of Present Illness ~ Chief Complaint: Shortness of Breath Stated Complaint: SOB Time Seen by MD: 23:25 Primary Medical Doctor: alice Source: patient Mode of Arrival: EMS Exam Limitations: no limitations HPI Patient with a history of COPD in with shortness of breath today. No chest pain. Increased cough but phlegm is not coming up. Still smoking 1 cigarette per day. Was up to 1 pack a day at 1 point. Has smoked for 50 years. Brought in by ambulance and he was given a DuoNeb EN route. Medication Reconciliation Allergies: Coded Allergies: No Known Allergies (Unverified , 12/27/24) Scheduled Aspirin (Aspirin EC), 1 TAB PO DAILY Azithromycin (Zithromax), 1 TAB PO DAILY Budesonide/Formoterol Fumarate (Symbicort 80-4.5 Mcg Inhaler), 2 PUFFS INH Q12H Cephalexin*Monohydrate* (Keflex*), 2 CAP PO BID Prednisone (Prednisone), 0 PO DAILY Prednisone* (Prednisone*), 3 TAB PO DAILY Scheduled PRN Albuterol Sulfate (Proair Hfa), 2 PUFFS INH Q4HPRN PRN for wheezing Discontinued Medications Nicotine 14 MG Patch* (Habitrol 14 MG Patch*), 1 PATCH TD DAILY Discontinued Reason: patient no longer taking Tiotropium Br/Olodaterol HCl (Stiolto Respimat Inhal [place]), 1 PUFF INH QAM, (Reported) Past Medical History Past Medical History: Congestive Heart Failure, COPD, GERD, Hernia, Arthritis, Chronic Back Pain Past Surgical History: other Other Past Surgical History: left inguinal hernia sx Patient History: FH: diabetes mellitus FATHER Alcohol Use: Heavy Drug Use: none Lives In: Homeless Occupation: unemployed Review of Systems All Other Systems at this time: Reviewed and Negative Physical Exam Vital Signs: Temperature: 97.7, Source: Oral, Heart Rate: 88, Respiratory Rate: 24, BP: 107/54, Pulse Oximetry: 94, Weight: 76.000 Oxygen Flow Rate: 3.0 Physical Exam General: Alert and oriented x4, well-appearing, well-nourished, HEENT: Normocephalic, atraumatic, no visible or palpable masses or depression, extraocular movements intact, PERRLA, no scleral icterus, neck is supple and nontender, mucous membranes moist Heart: Regular rate and rhythm, no murmurs, rubs or gallops Lungs: Decreased, mildly increased work of breathing Extremities: Full range of motion, no acute deformity, no cyanosis or edema Musculoskeletal: Normal gait, normal tone Neurologic: Cranial nerves 2-12 are intact, Psychiatric: Alert and oriented x4, judgment and insight normal, normal mood and affect Skin: Good turgor, no rashes Progress Results/Orders Results/Orders Orders - CORDELIA VILLASENOR MD Chest,Two Views (12/27/24 23:03) Culture Blood (12/27/24 23:03) Saline Lock (12/27/24 23:03) Oxygen (12/27/24 23:03) Completed Orders - CORDELIA VILLASENOR MD Chest,Two Views (12/27/24 23:03) Cbc/Diff (12/27/24 23:03) BMP (12/27/24 23:03) PBNP (12/27/24 23:03) Lacticsepsis (12/27/24 23:03) Troponin (Single) (12/27/24 23:26) Albuterol 2.5mg/3ml Nebule (Proventil 2. (12/27/24 23:35) Methylprednisolone Sod Succ/Pf (Solu-Med (12/27/24 23:35) Azithromycin Tablet (Zithromax Tablet) (12/27/24 23:35) Medications Received in ER Medications (Trade) Dose Ordered Sig/Nerissa Route PRN Reason Start Time Stop Time Status Last Admin Dose Admin (Solu-Medrol 40mg inj.) 40 mg ONCE IV 12/27/24 23:35 12/28/24 01:14 DC 12/28/24 00:32 40 MG (Zithromax tablet) 500 mg ONCE ONCE PO 12/27/24 23:35 12/27/24 23:36 DC 12/28/24 00:32 500 MG Vital Signs 12/27/24 12/27/24 12/27/24 12/28/24 23:04 23:27 23:30 00:34 Temp 97.7 Pulse 89 88 Resp 36 22 24 B/P (MAP) 136/65 107/54 (71) Pulse Ox 100 97 94 O2 Delivery Nasal Cannula* O2 Flow Rate 0 4 3.0 FiO2 36 12/28/24 01:11 Temp 97.6 Pulse 88 Resp 26 B/P (MAP) 108/52 Pulse Ox 96 Laboratory Tests Test 12/27/24 23:23 White Blood Count 9.4 Red Blood Count 3.59 L Hemoglobin 11.8 L Hematocrit 35.7 L Mean Corpuscular Volume 99.4 H Mean Corpuscular Hemoglobin 32.8 H Mean Corpuscular Hemoglobin Concent 33.0 Red Cell Distribution Width 15.9 H Platelet Count 256 Mean Platelet Volume 7.0 L Neutrophils (%) (Auto) 87.6 H Lymphocytes (%) (Auto) 3.3 L Monocytes (%) (Auto) 9.1 Eosinophils (%) (Auto) 0 Basophils (%) (Auto) 0 Neutrophils # (Auto) 8.3 H Lymphocytes # (Auto) 0.3 L Monocytes # (Auto) 0.9 Eosinophils # (Auto) 0.0 Basophils # (Auto) 0.0 CBC Comment Sodium Level 142 Potassium Level 4.0 Chloride Level 106 Carbon Dioxide Level 28.8 Anion Gap 7 L Blood Urea Nitrogen 30 H Creatinine 1.11 H Estimated GFR/1.73 m2 65 BUN/Creatinine Ratio 27.0 H Glucose Level 94 Lactic Acid Level 2.4 H Calcium Level 8.6 Troponin I High Sensitivity 25 Pro-B-Type Natriuretic Peptide 982 H Albumin 3.3 L Chemistry Comments Microbiology Date/Time Source Procedure Growth Status 12/27/24 23:23 Blood Iv Start Blood Culture - Preliminary NEGATIVE (LESS THAN 24 HOURS) Resulted Medical Decision Making Additional Infomation Differential includes but isn't limited to: COPD exacerbation, pneumonia, viral infection, OK Departure Disposition: HOME / SELF CARE / HOMELESS Impression: Primary Impression: COPD exacerbation Additional Impression Text EKG: Sinus rhythm, rate of 94, right bundle branch block, QTC 46, no ST changes EKG independently reviewed by me. Chest x-ray independently reviewed by me and confirmed by Radiology. Patient in with COPD exacerbation. Labs including CBC, chemistry troponin unremarkable. Chest x-ray unremarkable. Temple much better after his DuoNeb and then 1 hour albuterol treatment. Also received Solu-Medrol and initial dose of azithromycin. Sending him home on the rest of the Z-Kai along with steroids for 4 more days. Discharged home in good condition. Follow up with PCP for recheck or return here if new or worsening symptoms. Condition: Improved Discharge Instructions: Form - COPD Action Plan Additional Instructions: Follow-up with your doctor in the next 1-2 weeks or return here if not doing well or new or worsening symptoms. Referrals: NO PRIMARY CARE PROVIDER (PCP) Prescriptions Azithromycin (Zithromax) 250 Mg Tablet 1 TAB PO DAILY for 4 Days, #4 TAB z-pack per packaging insert Prov: CORDELIA VILLASENOR MD 12/28/24 Prednisone* (Prednisone*) 20 Mg Tablet 3 TAB PO DAILY for 5 Days, #15 TAB Prov: CORDELIA VILLASENOR MD 12/28/24 Education Educated: Patient Educated regarding: diagnosis, treatment, prognosis, need for follow up Signature Scribe Signature: No scribe Attestation: No scribe CORDELIA VILLASENOR MD Dec 28, 2024 00:50
[2024-12-28 01:11] VITALS: BP 108/52; PULSE 88; RESP 26; TEMP 97.6; O2SAT 96
--- NOTE | 2024-12-28 08:13 | ELECTROCARDIOGRAPH REPORT ---
[facility] Test Date: 2024-12-27 Test Time: 23:08:19 Pat Name: CHARLES COBOS Department: EMERGENCY ROOM Room: Gender: M Gamma Facilities Operator: RENETTA : 1950 Requested By: DEPARTMENT EMERGENCY Order Number: [id number] Reading MD: Measurements Intervals [place] Rate: 94 P: 87 VT: 226 QRS: -61 QRSD: 135 T: 85 QT: 388 QTc: 486 Interpretive Statements Sinus rhythm Prolonged VT interval RBBB and LAFB ST elevation, consider inferior injury Please click the below link to view image of tracing.
== END 2024-12-28 01:13 | disposition home or self-care (01) ==
LOC: ER 23:02
DX: J44.1 Chronic obstructive pulmonary disease with (acute) exacerbation (principal); I50.9 Heart failure, unspecified; F17.210 Nicotine dependence, cigarettes, uncomplicated; K21.9 Gastro-esophageal reflux disease without esophagitis; M19.90 Unspecified osteoarthritis, unspecified site; Z79.899 Other long term (current) drug therapy
CPT/HCPCS: 36415; 71046; 80048; 83605; 83880; 84484; 85025; 87040; 93005; 96374; 99284; J2919

== ENCOUNTER 2024-12-28 07:53 | Inpatient (IN) | payer OTHER, MEDICARE ==
[2024-12-28] VITALS (13 sets, daily range): BP systolic 111–128; BP diastolic 59; PULSE 76–97; RESP 18–26; TEMP 97.6–97.7; O2SAT 95–98
[~2024-12-28] VITALS: Ht 172.7 cm; Wt 68.2 kg
[~2024-12-28 07:53] MED LIST changes: +AZIT-164 PO; +PRED20TA PO
--- NOTE | 2024-12-28 08:08 | ELECTROCARDIOGRAPH REPORT ---
[facility] Test Date: 2024-12-28 Test Time: 07:59:51 Pat Name: CHARLES COBOS Department: EMERGENCY ROOM Room: Gender: M Outplacement Consultant: J CARLOS : 1950 Requested By: JAX BRYSON Order Number: [id number] Reading MD: Measurements Intervals [place] Rate: 101 P: 76 UT: 176 QRS: -63 QRSD: 132 T: 89 QT: 360 QTc: 467 Interpretive Statements Atrial-paced complexes Probable left atrial enlargement RBBB and LAFB Nonspecific T abnormalities, lateral leads Please click the below link to view image of tracing.
--- NOTE | 2024-12-28 08:18 | Physician Documentation ---
History of Present Illness General Chief Complaint: Shortness of Breath Stated Complaint: COPD Time Seen by MD: 08:02 Primary Medical Doctor: alice Mode of Arrival: EMS, Stretcher History of Present Illness Initial Comments Patient is a 74-year-old male with a history of COPD who was seen here yesterday with an exacerbation of his COPD. He is on home oxygen at anywhere from 3-5 L. he was treated here with azithromycin and steroids and discharged with prescriptions which, unfortunately, went to the [place] pharmacy which is closed on the weekend. Thus, he has not had any medications since he was discharged here yesterday. He lives at the [place]. He returns here with wheezing and shortness of breath. Medication Reconciliation Allergies: Coded Allergies: No Known Allergies (Unverified , 12/27/24) Scheduled Aspirin (Aspirin EC), 1 TAB PO DAILY Azithromycin (Zithromax), 1 TAB PO DAILY Budesonide/Formoterol Fumarate (Symbicort 80-4.5 Mcg Inhaler), 2 PUFFS INH Q12H Cephalexin*Monohydrate* (Keflex*), 2 CAP PO BID Prednisone (Prednisone), 0 PO DAILY Prednisone* (Prednisone*), 3 TAB PO DAILY Scheduled PRN Albuterol Sulfate (Proair Hfa), 2 PUFFS INH Q4HPRN PRN for wheezing Discontinued Medications Nicotine 14 MG Patch* (Habitrol 14 MG Patch*), 1 PATCH TD DAILY Discontinued Reason: patient no longer taking Tiotropium Br/Olodaterol HCl (Stiolto Respimat Inhal [place]), 1 PUFF INH QAM, (Reported) Past Medical History Past Medical History: Congestive Heart Failure, COPD, GERD, Hernia, Arthritis, Chronic Back Pain Past Surgical History: other Other Past Surgical History: left inguinal hernia sx Smoking: Cigarettes, Less than 1 pack/day Alcohol Use: Heavy Drug Use: none Lives In: Homeless Occupation: unemployed Review of Systems ROS Constitutional: Denies chills, fatigue, fever, weight gain or weight loss. HEENT: Denies hearing loss, sinus pressure or visual changes. Respiratory: Wheezing and shortness of breath. Cardiovascular: Denies chest pain, pain while walking (claudication), edema or palpitations. Gastrointestinal: Denies abdominal pain, blood in stool, constipation, diarrhea, heartburn, loss of appetite, nausea or vomiting. Genitourinary: Denies painful urination (dysuria), excessive amount of urine (polyuria) or urinary frequency. Metabolic/Endocrine: Denies cold intolerance, heat intolerance, excessive thirst (polydipsia) or excessive hunger (polyphagia). Neurological: Denies dizziness, extremity numbness, extremity weakness, headaches, seizures or tremors. Psychiatric: Denies anxiety or depression. Integumentary: Denies breast discharge, breast lump, hives, mole change(s), rash or skin lesion. Musculoskeletal: Denies back pain, joint pain, joint swelling or neck pain. Hematologic: Denies easily bleeding, easily bruises, lymphedema or issues with blood clots. Immunologic: Denies food allergies or seasonal allergies. Physical Exam Physical Exam Vital Signs: Temperature: 98.4, Source: Temporal, Heart Rate: 99, Respiratory Rate: 18, BP: 134/82, Pulse Oximetry: 99, Weight: 68.180 Oxygen Flow Rate: 4.0 Physical Exam Physical Exam Vitals and nursing note reviewed. Constitutional: General: Patient is awake, alert, oriented x 4 in no acute distress and well appearing. Speech is clear and lucid. Appearance: Normal appearance. Patient is not ill-appearing, toxic-appearing or diaphoretic. HENT: Head: Normocephalic and atraumatic. Mouth/Throat: Mouth: Mucous membranes are moist. Pharynx: Oropharynx is clear. Eyes: General: No scleral icterus. Extraocular Movements: Extraocular movements intact. Pupils: Pupils are equal, round, and reactive to light. Cardiovascular: Rate and Rhythm: Normal rate and regular rhythm. Heart sounds: No murmur heard. Pulmonary: Effort: Mild to moderate shortness of breath. Able to speak in full sentences. Breath sounds: Bilateral wheezes. Abdominal: General: There is no distension. Palpations: There is no fluid wave, hepatomegaly or mass. Tenderness: There is no abdominal tenderness. There is no guarding. Musculoskeletal: General: No swelling or deformity. Skin: Coloration: Skin is not jaundiced. Findings: No erythema or rash. Neurological: Mental Status: Patient is alert. Progress Results/Orders Results/Orders Orders - JAX BRYSON MD CMP (12/28/24 08:09) Methylprednisolone Sod Succ/Pf (Solu-Med (12/28/24 16:00) Azithromycin/Ns 500mg/250ml (Zithromax/N (12/28/24 08:10) Chest,Single View (12/28/24 08:09) Electrocardiogram (12/28/24 ) Hs Troponin I W Calculations (12/28/24 08:15) PBNP (12/28/24 08:15) Page Hospitalist (12/28/24 08:16) Albuterol 2.5mg/3ml Nebule (Proventil 2. (12/28/24 08:20) * Rt Notification Q1H (12/28/24 08:18) Completed Orders - JAX BRYSON MD Electrocardiogram (12/28/24 ) Cbc/Diff (12/28/24 08:09) Ipratropium Nebule (Atrovent Nebule) (12/28/24 08:20) Vital Signs 12/28/24 12/28/24 12/28/24 07:57 07:59 08:15 Temp 98.4 Pulse 99 106 Resp 18 20 B/P (MAP) 134/82 122/66 (84) Pulse Ox 99 98 O2 Flow Rate 4.0 4.0 Laboratory Tests Test 12/28/24 08:23 12/28/24 08:25 White Blood Count 8.1 Red Blood Count 3.59 L Hemoglobin 11.9 L Hematocrit 35.8 L Mean Corpuscular Volume 99.5 H Mean Corpuscular Hemoglobin 33.3 H Mean Corpuscular Hemoglobin Concent 33.4 Red Cell Distribution Width 16.5 H Platelet Count 257 Mean Platelet Volume 6.8 L Neutrophils (%) (Auto) 92.3 H Lymphocytes (%) (Auto) 1.9 L Monocytes (%) (Auto) 5.4 Eosinophils (%) (Auto) 0 Basophils (%) (Auto) 0.4 Neutrophils # (Auto) 7.5 Lymphocytes # (Auto) 0.2 L Monocytes # (Auto) 0.4 Eosinophils # (Auto) 0.0 Basophils # (Auto) 0.0 CBC Comment Chemistry Comments Medical Decision Making Findings This is the 2nd visit for this patient with wheezing and shortness of breath. I will get him admitted. Departure Disposition: 09 ADMITTED INPATIENT Admitted to Inpatient Unit: to hospitalist Impression: Primary Impression: Acute exacerbation of chronic obstructive airways disease Condition: Stable Referrals: NO PRIMARY CARE PROVIDER (PCP) Signature Scribe Signature: . Attestation: . JAX BRYSON MD Dec 28, 2024 08:18
[2024-12-28 08:34] LABS: BASOPHILS % (AUTO) 0.4 % (0-1); EOSINOPHILS % (AUTO) 0 % (0-6); HEMATOCRIT 35.8 % (42.0-52.0); HEMOGLOBIN 11.9 g/dl (14.0-17.9); LYMPHOCYTES # (AUTO) 0.2 X10'3 (1.1-4.8); LYMPHOCYTES % (AUTO) 1.9 % (21-51); MEAN CORPUSCULAR HEMOGLOBIN 33.3 PG (27.0-31.0); MEAN CORPUSCULAR HGB CONC 33.4 g/dL (33.0-36.5); MEAN CORPUSCULAR VOLUME 99.5 FL (78-98); MEAN PLATELET VOLUME 6.8 FL (7.4-10.4); MONOCYTES # (AUTO) 0.4 X10'3 (0-0.9); MONOCYTES % (AUTO) 5.4 % (2-12); NEUTROPHILS # (AUTO) 7.5 X10'3 (1.8-7.7); NEUTROPHILS % (AUTO) 92.3 % (42-75); PLATELET COUNT 257 X10'3 (140-440); RED BLOOD COUNT 3.59 X10'6 (4.70-6.10); RED CELL DISTRIBUTION WIDTH 16.5 % (11.5-14.5); WHITE BLOOD COUNT 8.1 X10'3 (4.5-11.0)
[2024-12-28] MEDS ORDERED: albuterol 2.5 MG/3 ML nebule NEB PRN (08:40)
[2024-12-28] MEDS ORDERED: magnesium sulf-water 4G/100mL 100 ML IV PRN (08:40)
[2024-12-28] MEDS ORDERED: potassium Cl 20 mEq SR tablet PO PRN ×2 (08:40)
[2024-12-28] MEDS ORDERED: ondansetron/PF 4mg/2ml inj IV PRN (08:40)
[2024-12-28] MEDS ORDERED: potassium Cl 40MEQ/1/2NS 520ml 520 ML IV PRN (08:40)
[2024-12-28] MEDS ORDERED: acetaminophen 325mg tablet PO PRN ×2 (08:40)
[2024-12-28] MEDS ORDERED: magnesium sulf-water 2g/50mL 50 ML IV PRN (08:40)
[2024-12-28] MEDS ORDERED: magnesium Cl slow-release 64mg tablet PO PRN (08:40)
[2024-12-28 08:50] LABS: ALANINE AMINOTRANSFERASE 21 U/L (12-78); ALBUMIN 3.1 G/DL (3.4-5.0); ALBUMIN/GLOBULIN RATIO 1.1 (1.1-1.5); ALKALINE PHOSPHATASE 58 IU/L (46-116); ANION GAP 6 (8-16); ASPARTATE AMINO TRANSFERASE 17 U/L (10-37); BILIRUBIN,TOTAL 0.5 MG/DL (0.1-1.0); BLOOD UREA NITROGEN 31 MG/DL (7-18); BUN/CREATININE RATIO 27.7 (10.0-20.0); CALCIUM 8.6 MG/DL (8.5-10.1); CHLORIDE 108 MMOL/L (99-107); CREATININE 1.12 MG/DL (0.60-1.10); GLUCOSE 145 MG/DL (70-104); POTASSIUM 4.8 MMOL/L (3.5-5.1); SODIUM 144 MMOL/L (135-145); TOTAL CARBON DIOXIDE 30.3 MMOL/L (24-32); TOTAL PROTEIN 5.9 G/DL (6.4-8.2); eCRCL 56 ML/MIN; eGFR 64 ML/MIN
[2024-12-28 08:55] LABS: PRO BRAIN NATRIURETIC PEPTIDE 886 PG/ML (0-125)
[2024-12-28] MEDS: azithromycin/NS 500mg/250ml 250 ML IV ONE (08:59)
[2024-12-28] MEDS: nicotine 14mg patch - 24hr TD SCH (09:12)
--- NOTE | 2024-12-28 09:17 | RADIOLOGY REPORT ---
CHEST RADIOGRAPH Indication: COPD Technique: Single frontal view of the chest was obtained Comparison: 12/28/2023 FINDINGS: The cardiac silhouette is unremarkable. The lungs demonstrate right basilar airspace opacification, i ncreased. The pulmonary vasculature is mildly prominent. Blunting of the right costophrenic angle. Th ere is no pneumothorax. Prominent loops of bowel beneath the right hemidiaphragm, similar to prior. Old right clavicular fracture deformity. Old right lateral rib fractures. Old distal left clavicular fracture deformity. IMPRESSION: 1. As above
[2024-12-28] MEDS: albuterol 2.5 MG/3 ML nebule NEB ONE (09:18)
[2024-12-28] MEDS: ipratropium 0.5 MG/2.5ML nebule IH ONE (09:18)
[2024-12-28] MEDS: albuterol 2.5 MG/3 ML nebule NEB SCH (11:12)
[2024-12-28] MEDS: methylPREDNISolone sod succ/PF 40mg inj. IV SCH (12:14)
[2024-12-28] MEDS: furosemide 10 MG/1 ML 10ml inj IV SCH (13:02)
--- NOTE | 2024-12-28 15:29 | HISTORY AND PHYSICAL-Residence ---
History & Physical Providers to CC Resident Creating Document: RICKIMONYSUNITA ~ History of Present Illness Primary Medical Doctor: alice Reason for Admit\Complaint: copd exacerbation History of Present Illness 74-year-old male with history of chronic hypoxic respiratory failure on home oxygen (3-4 L baseline), presented to the ED with chief complaints of difficulty breathing and shortness of breath after being discharged on the 26 December 2024 from [facility]. He was discharged on the with antibiotic Keflex and prednisolone taper along with breathing treatments. [facility] [place] [facility] [place] 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 This morning he got dyspneic and could not breathe and hence decided to come to the ED. Denies significant chest pains, diaphoresis, fevers/chills, nasal congestion, expectoration, palpitations, or weight loss/weight gain. Smokes around half a pack a day (60 pack-years) last smoke was this morning. Drinks alcohol once a week. Uses pot. He has a cane that he uses for walking. Discussed advanced care directives and he wishes to be a full code. Allergies: Coded Allergies: No Known Allergies (Unverified , 12/27/24) Home Medications Home Medications Active Zithromax (Azithromycin) 250 Mg Tablet 1 Tab PO DAILY 4 Days z-pack per packaging insert Prednisone* (Prednisone) 20 Mg Tablet 3 Tab PO DAILY 5 Days Keflex* (Cephalexin HCl) 500 Mg Capsule 2 Cap PO BID 7 Days Aspirin EC (Aspirin) 81 Mg Tablet.dr 1 Tab PO DAILY 30 Days Prednisone 10 Mg Tablet 0 PO DAILY Take 6 tabs/day x2 days then 5 daily x2 days 4 daily x2 days 3 daily x2 days 2 daily x2 days 1 daily x2 days then stop. Symbicort 80-4.5 Mcg Inhaler (Budesonide/Formoterol Fumarate) 10.2 Gm Hfa.aer.ad 2 Puffs INH Q12H 30 Days Proair Hfa (Albuterol Sulfate) 1 Puff Inh 2 Puffs INH Q4HPRN PRN 21 Days Past Medical History Past Medical History Chronic hypoxic respiratory failure COPD Past Surgical History Surgical History Comment Orthopedic surgeries to the neck Pilonidal cyst resection Family History Family History: FH: diabetes mellitus FATHER Past Social History Smoking: Cigarettes, Less than 1 pack/day Alcohol Use: Heavy Drug Use: None Lives In: Homeless Occupation: unemployed ROS ROS Reviewed in full. All negative except for pertinent positive HPI. Exam Vitals: Vital Signs Date Time Temp Pulse Resp B/P (MAP) Pulse Ox O2 Delivery O2 Flow Rate FiO2 12/28/24 13:00 88 18 133/57 (82) 98 4.0 12/28/24 11:19 Nasal Cannula 12/28/24 11:12 32 12/28/24 07:57 98.4 General: General: Awake and Alert, no acute distress. On 4 L oxygen nasal cannula which is his baseline HEENT: Conjunctiva pink, Sclera clear, Mucus Membranes moist. Neck: Supple without masses and tenderness. Resp: Unlabored. Decreased breath sounds bilaterally Heart: Regular rhythm, normal S1 and S2, no rub, murmur or gallop. Abdomen: Soft and non tender no organomegaly. Normal bowel sounds x4 quadrant normoactive. No guarding or rigidity. 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 Skin: Multiple bruises on bilateral upper extremity and petechiae on right upper chest. Diagnostic Data Last Recorded Lab Results: 12/28/24 0823 12/28/24 0823 Advance Care Planning Advanced Care plannin - 30 Minutes Additional Plan 74-year-old male with history of chronic hypoxic respiratory failure on home oxygen (3-4 L baseline), presented to the ED with chief complaints of difficulty breathing and shortness of breath after being discharged on the 26 December 2024 from [facility]. Acute on chronic hypoxic respiratory failure Acute CHF with preserved EF 60% (12/24/2024) RVSP 39 History of COPD On exam he has bilateral lower extremity edema 2+ Currently on 4 L oxygen nasal cannula which is his baseline Breathing treatments p.r.n. Empiric antibiotics ceftriaxone Steroids methylprednisolone 40 IV daily Lasix 20 IV b.i.d. Monitor I's and os Awaiting med rec Code Status: Full code DVT prophylaxis: Heparin Analgesia/sedation: None Line/tube: PIV GI prophylaxis: None Nutrition: Heart healthy Prognosis: Guarded Disposition: Continue medical management. Mony Robison MD. IM Resident PGY-2 Date of Service: Dec 28, 2024 Billing Provider: KOBE SNIDER MD Common Visit Codes: 55590-[id number] INP/OBS CARE (HIGH) Secondary Visit Codes: [id number] CHNG SMOKING 3-10M, [id number] CARE PLAN 30 MINUTES MONY ROBISON, SUNITA Dec 28, 2024 15:29 KOBE SNIDER MD Dec 28, 2024 17:47
[2024-12-28] MEDS ORDERED: methylPREDNISolone sod succ/PF 40mg inj. IV SCH (16:00)
[2024-12-28] MEDS: furosemide 20 MG/2 ML vial IV SCH (20:15)
[2024-12-28] MEDS: heparin, porcine 5000 units/ml vial SQ SCH (20:16)
[2024-12-28] MEDS: HYDROcodone/acetaminophen 5mg/325mg tablet PO PRN (20:52)
[2024-12-28] MEDS: Melatonin 3mg tablet PO ONE (22:04)
[2024-12-28] MEDS: LORazepam 1 MG tablet PO ONE (22:11)
[2024-12-29] VITALS (20 sets, daily range): BP systolic 118–127; BP diastolic 59–67; PULSE 74–98; RESP 16–36; TEMP 97.3–98.6; O2SAT 90–100
[2024-12-29] MEDS: morphine 2 MG/ML inj. syringe IV PRN (02:01)
[2024-12-29 06:27] LABS: BASOPHILS % (AUTO) 0.1 % (0-1); EOSINOPHILS % (AUTO) 0 % (0-6); HEMATOCRIT 36.1 % (42.0-52.0); HEMOGLOBIN 12.1 g/dl (14.0-17.9); LYMPHOCYTES # (AUTO) 0.6 X10'3 (1.1-4.8); LYMPHOCYTES % (AUTO) 5.1 % (21-51); MEAN CORPUSCULAR HEMOGLOBIN 32.8 PG (27.0-31.0); MEAN CORPUSCULAR HGB CONC 33.5 g/dL (33.0-36.5); MONOCYTES # (AUTO) 1.4 X10'3 (0-0.9); MONOCYTES % (AUTO) 12.2 % (2-12); NEUTROPHILS # (AUTO) 9.5 X10'3 (1.8-7.7); NEUTROPHILS % (AUTO) 82.6 % (42-75); PLATELET COUNT 262 X10'3 (140-440); RED BLOOD COUNT 3.68 X10'6 (4.70-6.10); RED CELL DISTRIBUTION WIDTH 15.9 % (11.5-14.5); WHITE BLOOD COUNT 11.4 X10'3 (4.5-11.0)
[2024-12-29 06:32] LABS: ALBUMIN 3.3 G/DL (3.4-5.0); ANION GAP 2 (8-16); BLOOD UREA NITROGEN 38 MG/DL (7-18); BUN/CREATININE RATIO 41.8 (10.0-20.0); CALCIUM 8.8 MG/DL (8.5-10.1); CHLORIDE 105 MMOL/L (99-107); CREATININE 0.91 MG/DL (0.60-1.10); GLUCOSE 87 MG/DL (70-104); POTASSIUM 4.1 MMOL/L (3.5-5.1); SODIUM 142 MMOL/L (135-145); TOTAL CARBON DIOXIDE 35.4 MMOL/L (24-32); eCRCL 69 ML/MIN; eGFR 81 ML/MIN
[2024-12-29] MEDS: budesonide 0.5mg/2ml UD nebule IH SCH ×2 (07:38→12:40)
[2024-12-29] MEDS: CefTRIAXone 2gm/D5W 50ml BAG 50 ML IV SCH (09:51)
[2024-12-29] MEDS: LORazepam 0.5 MG tablet PO PRN (10:57)
[2024-12-29 13:10] LABS: ABG BASE EXCESS 4.2 mmol/L (-2.0-3.0); ABG HCO3 30.4 mmol/L (21.0-28.0); ABG OXYGEN SATURATION 96.8 % (94.0-98.0); ABG PH (T) 7.391 (7.350-7.450); ABG PO2 (T) 82.2 mmHg (83.0-108.0); ALLEN'S TEST POSITIVE; FCOHb 0.8 % (0.5-1.5); FHHb 3.2 % (0.0-5.0); FLOW 3 L/min; FMetHb 0.3 % (0.0-1.5); FO2Hb 95.7 % (94.0-98.0); MODE NASAL CANNULA; PATIENT TEMPERATURE 36.5; TOTAL HEMOGLOBIN 13.9 G/dl (13.5-17.5)
--- NOTE | 2024-12-29 13:12 | RADIOLOGY REPORT ---
CHEST RADIOGRAPH Indication: copd Technique: Single frontal view of the chest was obtained Comparison: DI CHEST,SINGLE VIEW on DOS: 12/28/24, DI CHEST,SINGLE VIEW on DOS: 12/23/24, DI CHEST,SINGL E VIEW on DOS: 12/23/24 FINDINGS: Lines and Tubes: None Lungs: No focal consolidation. Mild elevation of the right hemidiaphragm with linear density of the r ight lateral lung base. Pleura: No effusion. No pneumothorax. Cardiomediastinal contours: Unremarkable Bones: No acute osseous abnormality. Old fracture deformity of bilateral clavicles multiple right-dirk ed ribs. IMPRESSION: Mild elevation of the right hemidiaphragm with right lateral lung base linear atelectasis/ scarring. Otherwise , No acute cardiopulmonary disease.
[2024-12-29] MEDS: methylPREDNISolone sod succ 125mg/2ml vial IV ONE (13:21)
--- NOTE | 2024-12-29 15:15 | PROGRESS NOTE- Residence ---
Progress Note - Resident Providers to CC Resident Creating Document: HILLARY ODELL, RES ~ Antibiotic Timeout Antibiotic Ordered?: Yes Subjective The patient has been evaluated at bedside. The patient reports significant improvement of shortness of breath. Currently states having some episodes of anxiety. Objective Vital Signs Date Time Temp Pulse Resp B/P (MAP) Pulse Ox O2 Delivery O2 Flow Rate FiO2 12/29/24 13:22 18 12/29/24 12:08 90 Nasal Cannula 2.0 12/29/24 11:58 95 28 12/29/24 11:00 97.3 123/67 (85) Physical exam: General: Well alert, well oriented, not confused, not agitated, not in acute distress, well cooperated during the physical. HEENT: Conjunctive are pink, sclerae clear, no icterus, pupil is equal in both sides, reactive to light, no ear discharge, no pharyngeal erythema or an edema. Neck: Supple, no JVD, no lymphadenopathy and thyromegaly. Chest: Equal air entry on both lungs, no additional sounds no rhonchi no wheezing at the moment. Cardiovascular: S1-S2 regular sinus rhythm and, regular rate, no gallops, no rubs, no murmurs Abdomen: No visible peristalsis, Bowel sounds present on auscultation, soft, nontender, no guarding, no rigidity Extremities: No obvious deformities, 3+ pedal edema bilaterally, capillary refill intact, peripheral pulsations are intact on both sides Central Nervous System: No focal neurological deficits, no motor or sensory weakness in all 4 extremities, could move all 4 extremities, 2+ deep tendon reflexes, negative Babinski. Musculoskeletal: No joint swelling, deformities, inflammations, and no scoliosis and back tenderness Skin: Warm and dry. Presence of multiple bruises in bilateral upper extremities. Result Diagram: 12/29/24 0556 12/29/24 0556 Assessment Assessment 74-year-old male with history of chronic hypoxic respiratory failure on home oxygen (3-4 L baseline), presented to the ED with chief complaints of difficulty breathing and shortness of breath after being discharged on the 26 December 2024 from [facility]. Plan Plan Acute on chronic hypoxic respiratory failure Acute CHF with preserved EF 60% (12/24/2024) RVSP 39 History of COPD Mild Leukocytosis likely secondary to steroids: On exam he has bilateral lower extremity edema 2+ Currently on 4 L oxygen nasal cannula which is his baseline Breathing treatments p.r.n. Empiric antibiotics ceftriaxone Steroids methylprednisolone 40 IV daily Lasix 20 IV b.i.d. Monitor I's and os 12/29/2024: COVID-19: Negative Presence of 3+ pedal edema. DuoNebs q.4h scheduled. Albuterol q.1h PRN Continue ceftriaxone 1 g IV daily day 2. Azithromycin 500 mg day day 1. To be completed on 01/01/2025 [place] [id number] mmu b.i.d. Incentive spirometry every 2 hours while awake. continue on methylprednisolone Furosemide 20 mg IV b.i.d. Duoneb IH started. Possible acute kidney injury likely secondary to renal tubular stasis: Creatinine 1.12, GFR 64. Currently creatinine trending down 0.91. Follow-up urine lytes. The patient currently his volume overload. Not started on IV fluids. Anxiety: Lorazepam 0.5 mg q.6h PRN Code Status: Full code DVT prophylaxis: Heparin 5000 units b.i.d. subQ Analgesia/sedation: Morphine, Ativan Line/tube: PIV GI prophylaxis: None Nutrition: Regular diet. Prognosis: Guarded Patient's current condition is guarded Date of Service: Dec 29, 2024 Billing Provider: KOBE SNIDER MD Common Visit Codes: [id number] INP/OBS CARE(HIGH) HILLARY ODELL, RES Dec 29, 2024 15:15 KOBE SNIDER MD Dec 29, 2024 17:48
[2024-12-29] MEDS: ipratropium/albuterol 3ml nebule NEB SCH (15:20)
[2024-12-29] MEDS: azithromycin 250mg tablet PO SCH (16:02)
[2024-12-29 17:47] LABS: TOTAL PROTEIN,URINE RANDOM 10.1 MG/DL
[2024-12-29] MEDS: lactobacillus rhamnosus 10,000 MMU CELLS/CAPSULE PO SCH (19:18)
[2024-12-29] MEDS: methylPREDNISolone sod succ/PF 40mg inj. IV SCH (19:20)
[2024-12-29] MEDS ORDERED: methylPREDNISolone sod succ/PF 40mg inj. IV SCH (20:00)
[2024-12-30] VITALS (9 sets, daily range): BP systolic 96–133; BP diastolic 52–66; PULSE 75–109; RESP 16–24; TEMP 97.6–98.6; O2SAT 91–96
[2024-12-30 06:51] LABS: BASOPHILS % (AUTO) 0.1 % (0-1); EOSINOPHILS % (AUTO) 0 % (0-6); HEMATOCRIT 35.3 % (42.0-52.0); LYMPHOCYTES # (AUTO) 0.5 X10'3 (1.1-4.8); LYMPHOCYTES % (AUTO) 6.1 % (21-51); MEAN CORPUSCULAR HEMOGLOBIN 33.4 PG (27.0-31.0); MEAN CORPUSCULAR VOLUME 98.1 FL (78-98); MEAN PLATELET VOLUME 7.2 FL (7.4-10.4); MONOCYTES # (AUTO) 0.8 X10'3 (0-0.9); MONOCYTES % (AUTO) 9.3 % (2-12); NEUTROPHILS % (AUTO) 84.5 % (42-75); PLATELET COUNT 230 X10'3 (140-440); RED CELL DISTRIBUTION WIDTH 15.7 % (11.5-14.5); WHITE BLOOD COUNT 8.3 X10'3 (4.5-11.0)
[2024-12-30 07:16] LABS: ALBUMIN 3.1 G/DL (3.4-5.0); ANION GAP 4 (8-16); BLOOD UREA NITROGEN 41 MG/DL (7-18); BUN/CREATININE RATIO 39.4 (10.0-20.0); CALCIUM 8.6 MG/DL (8.5-10.1); CHLORIDE 99 MMOL/L (99-107); CREATININE 1.04 MG/DL (0.60-1.10); GLUCOSE 116 MG/DL (70-104); POTASSIUM 4.7 MMOL/L (3.5-5.1); SODIUM 138 MMOL/L (135-145); TOTAL CARBON DIOXIDE 35.4 MMOL/L (24-32); eCRCL 60 ML/MIN; eGFR 70 ML/MIN
[2024-12-30] MEDS ORDERED: NICO-631 TD (10:25)
[2024-12-30] MEDS ORDERED: FURO-150 PO (10:25)
[2024-12-30] MEDS ORDERED: LACT1CAP26 PO (10:25)
[2024-12-30] MEDS ORDERED: PRED10TA23 PO (10:29)
--- NOTE | 2024-12-30 15:19 | DISCHARGE SUMMARY-Residence ---
Discharge Summary Providers to CC Resident Creating Document: NIKKI ROBISON RES ~ Discharge Summary Admission Diagnosis: acute on chronic COPD [facility] Hospital Course DATE OF ADMISSION: 12/28/2024 DATE OF DISCHARGE: 12/30/2024 HOSPITAL COURSE SAME MENTIONED DISCHARGE SUMMARY. Discharge Diagnosis\Comment: Acute on chronic hypoxic respiratory failure Acute CHF with preserved EF 60% (12/24/2024) RVSP 39 History of COPD Mild Leukocytosis likely secondary to steroids: Possible DHRUV secondary to vasomotor nephropathy Renal tubular stasis ruled out Anxiety Operations\Procedures: None Consultants: None Complications: None Condition on DC: Stable New Medications: Furosemide (Lasix) 20 Mg Tablet 20 MG PO DAILY, #14 TAB Lactobacillus Rhamnosus (Culturelle) 10 Billion Cell Capsule 59537 MMU PO BID, #30 CAP Nicotine 14 MG Patch* (Habitrol 14 MG Patch*) 1 Each Patch.td24 1 PATCH TD DAILY, #10 PATCH Changed Medications: Prednisone (Prednisone) 10 Mg Tablet 0 PO DAILY, #42 TAB (Changed from: Take 6 tabs/day x2 days then 5 daily x2 days 4 daily x2 days 3 daily x2 days 2 daily x2 days 1 daily x2 days then stop.) Take 5 tabs/day x2 days then 4 daily x2 days 3 daily x2 days 2 daily x2 days 1 daily x2 days then stop. Continued Medications: Albuterol Sulfate (Proair Hfa) 1 Puff Inh 2 PUFFS INH Q4HPRN PRN for wheezing for 21 Days, #1 INHALER 0 Refills Aspirin (Aspirin EC) 81 Mg Tablet.dr 1 TAB PO DAILY for 30 Days, #30 TAB Azithromycin (Zithromax) 250 Mg Tablet 1 TAB PO DAILY for 4 Days, #4 TAB z-pack per packaging insert Budesonide/Formoterol Fumarate (Symbicort 80-4.5 Mcg Inhaler) 10.2 Gm Hfa.aer.ad 2 PUFFS INH Q12H for 30 Days, #10.2 GM Cephalexin*Monohydrate* (Keflex*) 500 Mg Capsule 2 CAP PO BID for 7 Days, #28 CAP Discontinued Medications: Prednisone* (Prednisone*) 20 Mg Tablet 3 TAB PO DAILY for 5 Days, #15 TAB Discharge Summary: As per HPI: 74-year-old male with history of chronic hypoxic respiratory failure on home oxygen (3-4 L baseline), presented to the ED with chief complaints of difficulty breathing and shortness of breath after being discharged on the 26 December 2024 from [facility]. He was discharged on the with antibiotic Keflex and prednisolone taper along with breathing treatments. [facility]. He states that post discharge he was not able to pickling grader his medications from the pharmacy in [place] has a disclosed on the weekends. This morning he got dyspneic and could not breathe and hence decided to come to the ED. Denies significant chest pains, diaphoresis, fevers/chills, nasal congestion, expectoration, palpitations, or weight loss/weight gain. Smokes around half a pack a day (60 pack-years) last smoke was this morning. Drinks alcohol once a week. Uses pot. He has a cane that he uses for walking. Discussed advanced care directives and he wishes to be a full code. Hospital course: On exam he had bilateral lower extremity edema 2+, he was on 4 L oxygen which was his baseline. Was started on breathing treatments p.r.n. on empiric antibiotics ceftriaxone. Was also started on steroids methylprednisolone 40 IV daily and Lasix 20 IV b.i.d.. He had mild DHRUV with creatinine 1.2 which eventually resolved. Was given Ativan 0.5 q.6 p.r.n. for anxiety. He improved clinically and has been doing well, oxygen tapered and he was down to 2 L oxygen nasal cannula. his hospital course is uncomplicated he is hemodynamically stable on the day of discharge and his physical exam is as follows: General: Awake and Alert, no acute distress. On 4 L oxygen nasal cannula which is his baseline HEENT: Conjunctiva pink, Sclera clear, Mucus Membranes moist. Neck: Supple without masses and tenderness. Resp: Unlabored. Decreased breath sounds bilaterally Heart: Regular rhythm, normal S1 and S2, no rub, murmur or gallop. Abdomen: Soft and non tender no organomegaly. Normal bowel sounds x4 quadrant normoactive. No guarding or rigidity. 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 Skin: Multiple bruises on bilateral upper extremity and petechiae on right upper chest. Discharge medications can be found above. Patient is being discharged with the following advice: Breathing treatments as needed, finish the course of antibotics keflex and zithromax as prescribed. Taper steroids as mentioned. If condition worsens call 911 or go to the nearest er immediately. Laboratory Tests Test 12/29/24 05:56 12/29/24 13:06 12/29/24 15:43 12/29/24 17:02 White Blood Count 11.4 X10'3 Red Blood Count 3.68 X10'6 Hemoglobin 12.1 g/dl Hematocrit 36.1 % Mean Corpuscular Volume 98.0 FL Mean Corpuscular Hemoglobin 32.8 PG Mean Corpuscular Hemoglobin Concent 33.5 g/dL Red Cell Distribution Width 15.9 % Platelet Count 262 X10'3 Mean Platelet Volume 7.0 FL Neutrophils (%) (Auto) 82.6 % Lymphocytes (%) (Auto) 5.1 % Monocytes (%) (Auto) 12.2 % Eosinophils (%) (Auto) 0 % Basophils (%) (Auto) 0.1 % Neutrophils # (Auto) 9.5 X10'3 Lymphocytes # (Auto) 0.6 X10'3 Monocytes # (Auto) 1.4 X10'3 Eosinophils # (Auto) 0.0 X10'3 Basophils # (Auto) 0.0 X10'3 CBC Comment Sodium Level 142 MMOL/L Potassium Level 4.1 MMOL/L Chloride Level 105 MMOL/L Carbon Dioxide Level 35.4 MMOL/L Anion Gap 2 Blood Urea Nitrogen 38 MG/DL Creatinine 0.91 MG/DL Estimated GFR/1.73 m2 81 ML/MIN BUN/Creatinine Ratio 41.8 Glucose Level 87 MG/DL Calcium Level 8.8 MG/DL Albumin 3.3 G/DL Chemistry Comments Blood Gas Specimen Type Arterial Blood Gas Puncture Site Rr O2 Saturation 96.8 % Arterial Blood pH (Temp corrected) 7.391 Arterial Blood pCO2 (Temp correct) 51.0 mmHg Arterial Blood pO2 (Temp corrected) 82.2 mmHg Arterial Blood PO2/FiO2 Ratio 2.65 mmHg/% Arterial Blood HCO3 30.4 mmol/L Arterial Blood Base Excess 4.2 mmol/L Arterial Blood Oxyhemoglobin 95.7 % Arterial Blood Carboxyhemoglobin 0.8 % Arterial Blood Methemoglobin 0.3 % Arterial Blood Deoxyhemoglobin 3.2 % Jose Antonio Test Positive Blood Gas Hemoglobin 13.9 G/dl Blood Gas Temperature 36.5 Blood Gas Liter Flow 3 L/min Blood Gas Modality Nasal cannula FiO2 32.0 mmHg/% Blood Gas Critical Value Called To ector Flores lvn Osmolality 299 MOSM/K Urine Eosinophils No eos /HPF Urine Osmolality 512 MOSM/K Urine Random Creatinine 43.0 MG/DL Urine Random Total Protein 10.1 MG/DL Urine Random Sodium 87 MEQ/L Urine Random Chloride 103 MEQ/L Urine Random Urea 755.0 MG/DL Test 12/30/24 06:10 White Blood Count 8.3 X10'3 Red Blood Count 3.60 X10'6 Hemoglobin 12.0 g/dl Hematocrit 35.3 % Mean Corpuscular Volume 98.1 FL Mean Corpuscular Hemoglobin 33.4 PG Mean Corpuscular Hemoglobin Concent 34.0 g/dL Red Cell Distribution Width 15.7 % Platelet Count 230 X10'3 Mean Platelet Volume 7.2 FL Neutrophils (%) (Auto) 84.5 % Lymphocytes (%) (Auto) 6.1 % Monocytes (%) (Auto) 9.3 % Eosinophils (%) (Auto) 0 % Basophils (%) (Auto) 0.1 % Neutrophils # (Auto) 7.0 X10'3 Lymphocytes # (Auto) 0.5 X10'3 Monocytes # (Auto) 0.8 X10'3 Eosinophils # (Auto) 0.0 X10'3 Basophils # (Auto) 0.0 X10'3 CBC Comment Sodium Level 138 MMOL/L Potassium Level 4.7 MMOL/L Chloride Level 99 MMOL/L Carbon Dioxide Level 35.4 MMOL/L Anion Gap 4 Blood Urea Nitrogen 41 MG/DL Creatinine 1.04 MG/DL Estimated GFR/1.73 m2 70 ML/MIN BUN/Creatinine Ratio 39.4 Glucose Level 116 MG/DL Calcium Level 8.6 MG/DL Albumin 3.1 G/DL Chemistry Comments *Problems/Diagnosis: (1) COPD exacerbation Status: Acute (2) Acute exacerbation of chronic obstructive airways disease Status: Acute Total Time Spent on D/C: > 30 Minutes Date of Service: Dec 30, 2024 Billing Provider: KOBE SNIDER MD Common Visit Codes: 62090-CVO/OBS DISCH DAY >30min NIKKI ROBISON RES Dec 30, 2024 15:19 KOBE SNIDER MD Dec 30, 2024 17:39
== END 2024-12-30 13:27 | disposition home or self-care (01) | DRG 291 ==
LOC: ER 07:54 → ED HOLD 08:46 → PCU 3S 18:13
PROVIDERS: ADMIT Internal Medicine; ATTEND Internal Medicine
DX: I50.31 Acute diastolic (congestive) heart failure (principal); J96.21 Acute and chronic respiratory failure with hypoxia; N17.0 Acute kidney failure with tubular necrosis; Z59.00 Homelessness unspecified; F17.210 Nicotine dependence, cigarettes, uncomplicated; Z20.822 Contact with and (suspected) exposure to COVID-19; G89.29 Other chronic pain; K21.9 Gastro-esophageal reflux disease without esophagitis; M54.9 Dorsalgia, unspecified; F41.9 Anxiety disorder, unspecified; T38.0X5A Adverse effect of glucocorticoids and synthetic analogues, initial encounter; D72.829 Elevated white blood cell count, unspecified; J44.9 Chronic obstructive pulmonary disease, unspecified; Z83.3 Family history of diabetes mellitus; Z56.0 Unemployment, unspecified; Y92.89 Other specified places as the place of occurrence of the external cause
CPT/HCPCS: 36415; 36600; 71045; 80048; 80053; 82436; 82570; 82803; 83880; 83930; 83935; 84156; 84300; 84484; 84540; 85018; 85025; 87207; 87811; 93005; 94640; 94760; 96365; 99285; A6213; A6222; G0378; J0456; J0696; J1644; J1938; J2270; J2919

== ENCOUNTER 2025-01-02 08:06 | Emergency (ER) | payer OTHER, MEDICAID ==
[~2025-01-02] VITALS: Ht 177.8 cm; Wt 68.2 kg
[~2025-01-02 08:06] MED LIST changes: +EMPA10TA PO; +FURO-150 PO; +HYDR-3717 PO; +IPRA3AMP9 NEB; +LACT1CAP26 PO; +NICO-631 TD; -PRED20TA PO
--- NOTE | 2025-01-02 08:10 | Physician Documentation ---
History of Present Illness ~ Stated Complaint: SOB Time Seen by MD: 08:09 Primary Medical Doctor: alice Source: patient, EMS HPI 74-year-old male, history of COPD on home oxygen who presents with shortness of breath Per EMS, the patient arrives from my hotel room. He reported shortness of breath, was seen here in the emergency department yesterday. When they arrived they found that his oxygen system was malfunctioning, and they think he was not receiving any oxygen. He was placed on 3 L nasal cannula during transport, his baseline, and seemed to be doing better. No treatments given. Here in the ED, the patient reports shortness of breath. He tells me that he feels foggy, shortness of breath, and very tired. He tells me he had trouble walking around the hotel this morning. He denies any chest pain. He denies any change to his leg swelling. He is otherwise a somewhat limited historian. Medication Reconciliation Allergies: Coded Allergies: No Known Allergies (Unverified , 12/27/24) Scheduled Aspirin (Aspirin EC), 1 TAB PO DAILY Budesonide/Formoterol Fumarate (Symbicort 80-4.5 Mcg Inhaler), 2 PUFFS INH Q12H Empagliflozin (Jardiance), 10 MG PO DAILY Furosemide (Lasix), 20 MG PO DAILY Hydroxyzine Hcl* (Atarax*), 1 TAB PO Q8H Lactobacillus Rhamnosus (Culturelle), 10,000 MMU PO BID Nicotine 14 MG Patch* (Habitrol 14 MG Patch*), 1 PATCH TD DAILY Prednisone (Prednisone), 0 PO DAILY Scheduled PRN Albuterol Sulfate (Proair Hfa), 2 PUFFS INH Q4HPRN PRN for wheezing Ipratropium/Albuterol Sulfate (IPRAT-ALBUT 0.5-3(2.5) MG/3 ML nebule), 3 ML NEB Q4H PRN for SOB or wheezing Discontinued Medications Azithromycin (Zithromax), 1 TAB PO DAILY Discontinued Reason: Auto Discontinued Cephalexin*Monohydrate* (Keflex*), 2 CAP PO BID Discontinued Reason: Auto Discontinued Prednisone* (Prednisone*), 3 TAB PO DAILY Past Medical History Past Medical History: Congestive Heart Failure, COPD, GERD, Hernia, Arthritis, Chronic Back Pain Past Surgical History: other Other Past Surgical History: left inguinal hernia sx Patient History: FH: diabetes mellitus FATHER Alcohol Use: Heavy Drug Use: none Lives In: Homeless Occupation: unemployed Review of Systems Constitutional: Denies: fever Respiratory: Reports: shortness of breath Cardiovascular: Denies: chest pain Gastrointestinal: Denies: abdominal pain Physical Exam Physical Exam General: This is a chronically ill-appearing older man, who appears short of breath in his speaking in 1-2 word sentences HEENT: Atraumatic, oropharynx appears dry Heart: Regular rate and rhythm, normal-appearing peripheral perfusion Lungs: Diminished breath sounds bilateral with crackles in the bilateral lung bases and few scattered expiratory wheezes Abdomen: Soft, nondistended, nontender all quadrants Extremities: Pitting edema to bilateral calves Neuro: Alert and oriented Psychiatric: Flattened affect, slow to answer, but is cooperative with exam Progress Results/Orders Results/Orders Orders - CHRIS LOCKE MD Chest,Single View (01/02/25 08:16) Completed Orders - CHRIS LOCKE MD Cbc/Diff (01/02/25 08:16) CMP (01/02/25 08:16) PBNP (01/02/25 08:16) Chest,Single View (01/02/25 08:16) Ipratropium/Albuterol Nebule (Ipratrop/A (01/02/25 08:20) Medications Received in ER Medications (Trade) Dose Ordered Sig/Nerissa Route PRN Reason Start Time Stop Time Status Last Admin Dose Admin (ipratrop/ albuterol 0.5-3(2.5) MG/3ml nebule) 3 ml ONCE PRN NEB SOB or wheezing 01/02/25 08:20 01/02/25 09:33 DC 01/02/25 09:01 3 ML Vital Signs 01/02/25 01/02/25 01/02/25 01/02/25 08:10 08:14 09:00 09:03 Temp 98.5 98.5 Pulse 80 79 77 Resp 20 20 18 18 B/P (MAP) 104/56 119/65 (83) Pulse Ox 98 97 95 O2 Delivery Nasal Cannula* O2 Flow Rate 3.0 3.0 3 FiO2 32 01/02/25 01/02/25 09:11 09:29 Temp 98.5 Pulse 83 Resp 18 B/P (MAP) Pulse Ox 99 O2 Delivery Nasal Cannula* O2 Flow Rate 3 FiO2 32 Laboratory Tests Test 01/02/25 08:23 White Blood Count 8.7 Red Blood Count 3.78 L Hemoglobin 12.5 L Hematocrit 37.1 L Mean Corpuscular Volume 98.1 H Mean Corpuscular Hemoglobin 33.2 H Mean Corpuscular Hemoglobin Concent 33.8 Red Cell Distribution Width 15.7 H Platelet Count 228 Mean Platelet Volume 7.0 L Neutrophils (%) (Auto) 88.0 H Lymphocytes (%) (Auto) 6.2 L Monocytes (%) (Auto) 5.0 Eosinophils (%) (Auto) 0.2 Basophils (%) (Auto) 0.6 Neutrophils # (Auto) 7.6 Lymphocytes # (Auto) 0.5 L Monocytes # (Auto) 0.4 Eosinophils # (Auto) 0.0 Basophils # (Auto) 0.1 CBC Comment Sodium Level 134 L Potassium Level 3.8 Chloride Level 95 L Carbon Dioxide Level 35.4 H Anion Gap 4 L Blood Urea Nitrogen 33 H Creatinine 1.07 Estimated GFR/1.73 m2 68 BUN/Creatinine Ratio 30.8 H Glucose Level 111 H Calcium Level 8.4 L Total Bilirubin 0.6 Aspartate Amino Transf (AST/SGOT) 27 Alanine Aminotransferase (ALT/SGPT) 28 Alkaline Phosphatase 59 Pro-B-Type Natriuretic Peptide 332 H Total Protein 6.1 L Albumin 3.3 L Globulin 2.8 Albumin/Globulin Ratio 1.2 Chemistry Comments Re-Evaluation Re-evaluation : Progress The patient states that he wants to leave, states his breathing feels better and he does not want any further treatment. EKG/XRAY/CT/US/VASC/MRI EKG : Additional Comment I personally interpreted the EKG and this shows: Sinus rhythm, rate 77, QTC 420, T-wave inversion in the lateral leads Chest X-Ray : Additional Comments I personally reviewed the x-ray, and it shows: No focal consolidation, no pulmonary edema, normal cardiac silhouette Medical Decision Making Additional info obtained from: old records Findings Per chart review, the patient was discharged from the hospital yesterday, after an admission for COPD and CHF exacerbations. He is on home oxygen. Differential Dx:Considerations: Include: anxiety, bronchitis, CHF, COPD, myocardial infarction, pneumonia, respiratory failure Assessment The patient presents with shortness of breath. Per chart review he has been admitted to the hospital several times this week already for combination of CHF and COPD. Per EMS he may have had an issue with his home oxygen tank. On arrival he is speaking in 1-2 word sentences and does appear short of breath. He has crackles on his lung exam and some scattered wheezes. He was given a DuoNeb. His laboratory testing is unremarkable, chest x-ray without new consolidation. After treatments he stated he felt better and wanted to leave. He declined admission or any further treatments at this time. He still seems high risk for returning. He was given home care instructions, and hopefully he can fix his oxygen tubing. Return precautions given. Departure Time of Disposition: 09:19 Disposition: 01 HOME / SELF CARE / HOMELESS Impression: Primary Impression: Chronic obstructive pulmonary disease Additional Impression: CHF (congestive heart failure) Condition: Improved Discharge Instructions: Heart Failure, Diagnosis, [id number] Referrals: NO PRIMARY CARE PROVIDER (PCP) Education Educated: Patient Educated regarding: diagnosis, need for follow up Signature Scribe Signature: na Attestation: CHRIS Landeros MD Jan 02, 2025 08:10
[2025-01-02 08:35] LABS: BASOPHILS # (AUTO) 0.1 X10'3 (0-0.2); BASOPHILS % (AUTO) 0.6 % (0-1); EOSINOPHILS % (AUTO) 0.2 % (0-6); HEMATOCRIT 37.1 % (42.0-52.0); HEMOGLOBIN 12.5 g/dl (14.0-17.9); LYMPHOCYTES # (AUTO) 0.5 X10'3 (1.1-4.8); LYMPHOCYTES % (AUTO) 6.2 % (21-51); MEAN CORPUSCULAR HEMOGLOBIN 33.2 PG (27.0-31.0); MEAN CORPUSCULAR HGB CONC 33.8 g/dL (33.0-36.5); MEAN CORPUSCULAR VOLUME 98.1 FL (78-98); MONOCYTES # (AUTO) 0.4 X10'3 (0-0.9); NEUTROPHILS # (AUTO) 7.6 X10'3 (1.8-7.7); PLATELET COUNT 228 X10'3 (140-440); RED BLOOD COUNT 3.78 X10'6 (4.70-6.10); RED CELL DISTRIBUTION WIDTH 15.7 % (11.5-14.5); WHITE BLOOD COUNT 8.7 X10'3 (4.5-11.0)
[2025-01-02 08:47] LABS: ALANINE AMINOTRANSFERASE 28 U/L (12-78); ALBUMIN 3.3 G/DL (3.4-5.0); ALBUMIN/GLOBULIN RATIO 1.2 (1.1-1.5); ALKALINE PHOSPHATASE 59 IU/L (46-116); ANION GAP 4 (8-16); ASPARTATE AMINO TRANSFERASE 27 U/L (10-37); BILIRUBIN,TOTAL 0.6 MG/DL (0.1-1.0); BLOOD UREA NITROGEN 33 MG/DL (7-18); BUN/CREATININE RATIO 30.8 (10.0-20.0); CALCIUM 8.4 MG/DL (8.5-10.1); CHLORIDE 95 MMOL/L (99-107); CREATININE 1.07 MG/DL (0.60-1.10); GLUCOSE 111 MG/DL (70-104); POTASSIUM 3.8 MMOL/L (3.5-5.1); SODIUM 134 MMOL/L (135-145); TOTAL CARBON DIOXIDE 35.4 MMOL/L (24-32); TOTAL PROTEIN 6.1 G/DL (6.4-8.2); eCRCL 58 ML/MIN; eGFR 68 ML/MIN
--- NOTE | 2025-01-02 08:50 | RADIOLOGY REPORT ---
CHEST RADIOGRAPH Indication: Shortness of breath, history of CHF and COPD Technique: Single frontal view of the chest was obtained COMPARISON: DI CHEST,SINGLE VIEW on DOS: 12/30/24, DI CHEST,SINGLE VIEW on DOS: 12/29/24, DI CHEST,SING LE VIEW on DOS: 12/28/24, DI CHEST,SINGLE VIEW on DOS: 12/23/24, DI CHEST,SINGLE VIEW on DOS: 12/23/24 FINDINGS: Lines and Tubes: None Lungs: Clear Pleura: No effusion. No pneumothorax. Cardiomediastinal contours: Unremarkable Bones: Unremarkable IMPRESSION: No acute disease.
[2025-01-02 08:56] LABS: PRO BRAIN NATRIURETIC PEPTIDE 332 PG/ML (0-125)
[2025-01-02 09:00] VITALS: BP 119/65
[2025-01-02] MEDS: ipratropium/albuterol 3ml nebule NEB PRN (09:01)
[2025-01-02 09:03] VITALS: PULSE 77; RESP 18; O2SAT 95
[2025-01-02 09:11] VITALS: PULSE 83; RESP 18; O2SAT 99
[2025-01-02 09:29] VITALS: TEMP 98.5
--- NOTE | 2025-01-02 15:58 | ELECTROCARDIOGRAPH REPORT ---
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 Stanislav Marinelli Measurements Intervals [place] Rate: 77 P: 46 LA: 209 QRS: -65 QRSD: 133 T: 29 QT: 371 QTc: 420 Interpretive Statements Sinus rhythm Atrial premature complex RBBB and LAFB Electronically Signed On 01-10-2025 18:42:[address] Stanislav Marinelli Please click the below link to view image of tracing.
[2025-01-04] MEDS ORDERED: MELA3CAP2 PO (11:30)
[2025-01-04] MEDS ORDERED: CALC600T14 PO (11:30)
[2025-01-04] MEDS ORDERED: HYDR-3686 PO (11:30)
[2025-01-04] MEDS ORDERED: ASPI-107 PO (11:30)
[2025-01-04] MEDS ORDERED: [UNRECOGNIZED DRUG - CODE] (11:30)
[2025-01-04] MEDS ORDERED: FURO-150 PO (11:30)
== END 2025-01-02 09:33 | disposition home or self-care (01) ==
LOC: ER 08:07
DX: J44.9 Chronic obstructive pulmonary disease, unspecified (principal); I50.9 Heart failure, unspecified; M19.90 Unspecified osteoarthritis, unspecified site; F10.90 Alcohol use, unspecified, uncomplicated; Z79.82 Long term (current) use of aspirin; Y90.9 Presence of alcohol in blood, level not specified
CPT/HCPCS: 36415; 71045; 80053; 83880; 85025; 93005; 94640; 94760; 99285